=== PATIENT | female | born 1965 | race Caucasian/White ===

== ENCOUNTER 2024-04-06 14:06 | Outpatient (AMB) | payer OTHER, SELFPAY ==
--- NOTE | 2024-04-06 13:51 | MHC.PC.OV ---
Vital Signs 04/06/24 14:07 Height 5 ft 6 in Weight 169 lb BMI 27.3 BP 106/60 Blood Pressure Location Lt brachial Position Sitting Respiration 12 Pulse 78 Pulse Source Pulse Oximeter Pulse Oximetry (%) 98 Oxygen Delivery Method Room Air Intake Visit Reasons: NPV, rash Intake Note: New patient visit. Rash on left buttock. 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: No Allergies codeine Allergy (Verified 04/06/24 14:04) Nausea latex Allergy (Verified 04/06/24 14:04) skin rash Medication List - Last Reconciled 04/06/24 by Mee Stevenson PA-C No Known Home Meds Tobacco use date assessed: 04/06/24 Dental Screening Dental Screen Date: 04/06/24 Did you have a dental visit in the last 12 months?: Yes Did you have a dental problem in the last 6 months where you did not have access to dental care?: No Was dental information given to patient?: Patient has dentist HPI NPV, rash HPI Details Patient is a 58-year-old female who has a significant past medical history of former smoker, hepatic steatosis, pulmonary lung nodules, and rheumatoid factor positive arthritis presenting today for a follow up. Derm: recently had a rash on her left buttock. States that about a week and a half ago she is pulling up her pants and noticed a sharp pain in the left buttocks and it felt like a discomfort similar to shingles. She states that her skin was sensitive to light touch and was also a little itchy. She states it felt like there may have been a foreign body but since then the skin has improved with applying emu cream. She states that there was no longer any pain or itchiness but there is a scab and a little redness lines next to the scab. There was never any drainage. She denies any pustule or vesicle formation. No known tick bite. GI: She has followed with [facility] and is due for colonoscopy. She does tell me today that years ago she had a swallow study because she would at times choke on liquids or even certain foods. She says that this swallow study overall looked okay but when they did the endoscopy she did need dilatation. She states that she did not feel like that resolved her symptoms. She can position her neck in a certain way to cause the food or liquid to go down. She states it almost feels like an internal spasm. She says if she bends her neck all the way back it can somewhat alleviate the swallowing or at times she can feel the increased mucus production and she will have to cough it out or spit it out. She does notice that she does feel full very quickly and has a hard time eating much. She easily gets bloated in her upper and lower abdomen. She states that this has been a problem since childhood and does appear to be worse recently. States that her diet has not been as good. She does have a history of fatty liver and is following with a wellness physician and tells me that her recent liver function tests were elevated and off. 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 Her last ultrasound was over a year ago. Musculoskeletal: She gets nodules over the joints in her fingers and toes and states that it is related to the sugar and gluten that she eats. When she does not eat this her symptoms are improved. She is trying to be better right now. She does report getting numbness and tingling and a burning pain in her 2nd, 3rd and 4th toes on both feet. This has been going on for about a year. Unsure if it is worsening but it is made worse by certain positions of her feet. She states when she did go to the wellness doctor to they did mention that her A1c was a little elevated. She does not know the exact numbers. She has never been a diabetic before. She does take supplements and believes her vitamin-B levels are normal. She does not feel like the numbness comes from her back going down but it does feel like it starts in the feet and goes up. At times she does get weakness in her legs but states that it is mostly in the thighs in his noticed by going up the stairs. She does have a history of spinal stenosis in her cervical neck but the lumbar spine has not been imaged. She states that if she walks up a flight of stairs it feels like she ran a marathon. Her legs feel exhausted. She can walk on flat surfaces for hours and have no problems. Endo: States last A1c was elevated but unsure of the number. No polyuria or polydipsia. Mammo: Following with the breast and wellness Center at [facility] as she recently has had abnormal imaging of the breast. The recommendation was possibly to start tamoxifen but they are going to see how the repeat imaging looks on 04/14. 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 She has never had a bone density. She is postmenopausal. Up-to-date with low-dose CT scan screening. 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 Current occupational exposures/hazards: Yes (mold, lead, mercury in building) Cognitive needs: No Hearing needs: No Vision needs: Yes (glasses) Physical exam (Primary Care) Vital Signs: Last Vital Signs Pulse 78 04/06/24 14:07 Resp 12 04/06/24 14:07 BP 106/60 04/06/24 14:07 Pulse Ox 98 04/06/24 14:07 Oxygen Delivery Method Room Air 04/06/24 14:07 BMI result Body Mass Index 27.3 Tobacco/Smoking Status: Tobacco use Status Tobacco use date assessed 04/06/24 04/06/24 13:57 Patient Tobacco Use Status Former Tobacco user (quit 04/06/24 14:10 2008) e-Cigarette/Vaping Use Never Used 04/06/24 13:57 Const Orientation/consciousness: patient oriented x3 HENMT Ears: hearing grossly normal bilaterally Neck Thyroid: Thyroid normal Lymphatic: no lymphadenopathy noted Resp Auscultation: clear to auscultation bilaterally Cardio Rate: regular rate Rhythm: regular rhythm Heart sounds: S1 normal heart sound present and S2 normal heart sound present GI Inspection: Yes normal to inspection Palpation (GI): Soft to palpation and Other GI palpation findings present (nontender, no cva tenderness) Auscultation: normoactive bowel sounds Rectal Exam - Female: deferred Skin Other: There is a small, 5 mm by 5 mm scab noted on the left medial buttocks. It is nontender. There are 2 linear areas of blanching erythema noted that are approximately 1 cm in 2 cm in length to the lateral aspect of the scab. Neuro Other: Vibratory sensation intact of the bilateral lower extremities. DP pulses 2+ General: patient oriented x3, gait normal, moves all extremities, no focal motor deficits and normal sensation to monofilament Gait exam (Neuro): Normal gait present Motor exam (neuro): 5/5 motor strength present throughout Coding Level of Care Code Est Pt Level 5 (32582) Complex EM visit Add On G2211 Diagnoses Elevated LFTs R79.89 Dysphagia R13.10 Early satiety R68.81 Abdominal bloating R14.0 Paresthesia of both feet R20.2 Bilateral leg weakness R29.898 Lumbar back pain with radiculopathy affecting lower extremity M54.16 Former smoker Z87.891 Abnormal mammogram R92.8 Assessment & Plan Assessment & Plan (1) Elevated LFTs: Code(s): R79.89 - Other specified abnormal findings of blood chemistry Category: Medical Plan: Labs ordered today. Ultrasound ordered. (2) Dysphagia: Code(s): R13.10 - Dysphagia, unspecified Category: Medical Plan: Barium swallow ordered. Patient is due to see GI. We will follow up pending test results and discuss the possible need for an EGD. (3) Early satiety: Code(s): R68.81 - Early satiety Category: Medical Plan: Ultrasound ordered. Labs ordered. (4) Abdominal bloating: Code(s): R14.0 - Abdominal distension (gaseous) Category: Medical Plan: Ultrasound abdominal and transvaginal and labs ordered. We will follow up pending test results. (5) Paresthesia of both feet: Code(s): R20.2 - Paresthesia of skin Category: Medical Plan: Labs ordered. Nerve conduction study ordered. (6) Bilateral leg weakness: Code(s): R29.898 - Other symptoms and signs involving the musculoskeletal system Category: Medical Plan: X-ray of the back. Nerve conduction study ordered. D (7) Lumbar back pain with radiculopathy affecting lower extremity: Code(s): M54.16 - Radiculopathy, lumbar region Category: Medical Plan: X-ray. (8) Former smoker: Code(s): Z87.891 - Personal history of nicotine dependence Category: Social Hx Plan: Up-to-date on low-dose CAT scan screening (9) Abnormal mammogram: Code(s): R92.8 - Other abnormal and inconclusive findings on diagnostic imaging of breast Category: Medical Plan: Following with breast center Plan Bone density ordered 65 minutes spent today in [id number] time reviewing list of concerns and ongoing medical problems. Also reviewed previous notes from [facility]. Orders: Orders Complete Blood Count Auto Diff Today R13.10 - Dysphagia, unspecified, R79.89 - Other specified abnormal findings of blood chemistry Lipid Panel Today R13.10 - Dysphagia, unspecified, R79.89 - Other specified abnormal findings of blood chemistry NM gastric emptying study Today R68.81 - Early satiety US pelvic and transvaginal Today R14.0 - Abdominal distension (gaseous) IRON PROFILE Today M54.16 - Radiculopathy, lumbar region, R20.2 - Paresthesia of skin, R29.898 - Other symptoms and signs involving the musculoskeletal system Vitamin B12 and Folate Today M54.16 - Radiculopathy, lumbar region, R20.2 - Paresthesia of skin, R29.898 - Other symptoms and signs involving the musculoskeletal system Erythrocyte Sedimentation Rate Today M54.16 - Radiculopathy, lumbar region, R20.2 - Paresthesia of skin, R29.898 - Other symptoms and signs involving the musculoskeletal system US abdomen comp w elastography Today R13.10 - Dysphagia, unspecified, R79.89 - Other specified abnormal findings of blood chemistry Comprehensive Sp[place]er. Panel Fast Today R13.10 - Dysphagia, unspecified, R79.89 - Other specified abnormal findings of blood chemistry Ferritin Today R13.10 - Dysphagia, unspecified, R79.89 - Other specified abnormal findings of blood chemistry TSH reflex Free T4 Today R13.10 - Dysphagia, unspecified, R79.89 - Other specified abnormal findings of blood chemistry FL barium swallow Today R13.10 - Dysphagia, unspecified, R79.89 - Other specified abnormal findings of blood chemistry XR DEXA axial skeleton Today N95.9 - Unspecified menopausal and perimenopausal disorder, Z13.820 - Encounter for screening for osteoporosis Lyme IgG/IgM w/reflex to WB Today M54.16 - Radiculopathy, lumbar region, R20.2 - Paresthesia of skin, R29.898 - Other symptoms and signs involving the musculoskeletal system Magnesium Today M54.16 - Radiculopathy, lumbar region, R20.2 - Paresthesia of skin, R29.898 - Other symptoms and signs involving the musculoskeletal system Hemoglobin A1c Today M54.16 - Radiculopathy, lumbar region, R20.2 - Paresthesia of skin, R29.898 - Other symptoms and signs involving the musculoskeletal system, R73.01 - Impaired fasting glucose XR lumbar spine 2-3V Today M54.50 - Low back pain, unspecified H pylori Ag Stool Today R14.0 - Abdominal distension (gaseous) NE electromyogram (EMG) Today R20.2 - Paresthesia of skin
[2024-04-06 14:07] VITALS: BP 106/60; PULSE 78; RESP 12; O2SAT 98; BMI 27.3
--- OUTSIDE RECORDS SUMMARY | 2024-04-06 15:23 | XMS_ITS | Clinical Summary ---
Author Organization [facility] Address [address] [address] Care Team Providers Care Financial Aid Counselor Name Role Phone Pcp, No Primary Care Provider Unavailabl e Allergies No known active allergies Medications Medication Sig Dispensed Refills Start Date End Date Status clobetasol (TEMOVATE) 0.05 % cream APPLY THIN COAT TO AFFECTED AREA TWICE A DAY 08/16/2019 Active hydrocortisone (HYTONE) 2.5 % ointment APPLY A THIN LAYER OVER AFFECTED AREA ONCE DAILY AT BEDTIME 08/16/2019 Active multivitamin (multivitamin) Tab tablet Take 1 tablet by mouth daily. Active Social History Tobacco Use Types Packs/Day Years Used Date Smoking Tobacco: Former Smokeless Tobacco: Never Sex and Gender Information Value Date Recorded Sex Assigned at Not on file Gender Identity Not on file Sexual Orientation Not on file Last Filed Vital Signs Vital Sign Reading Time Taken Comments Blood Pressure 137/62 11/28/2019 12:34 PM EDT Pulse 87 11/28/2019 12:34 PM EDT Temperature 36.8 ??C (98.2 ??F) 11/28/2019 12:34 PM E DT Respiratory Rate - - Oxygen Saturation 98% 11/28/2019 12:34 PM EDT Inhaled Oxygen Concentration - - Weight 65.8 kg (145 lb) 11/28/2019 12:34 PM EDT Height 167.6 cm (5' 6 ) 11/28/2019 12:34 PM EDT Body Mass Index 23.4 11/28/2019 12:34 PM EDT Plan of Treatment Health Maintenance Due Date Last Done Comments Hepatitis C Virus Screening 1965 HIV Screening 1978 DTaP/Tdap/Td Vaccines (1 - Tdap) 1984 Hepatitis B Vaccines (1 of 3 - 19+ 3-dose series) 1984 Pap Smear (Ages 21-65) 1986 Mammogram 2005 Colonoscopy 2010 Pneumococcal Vaccines 50+ (1 of 1 - PCV) 09/28/2015 Zoster (Shingles) Vaccine (1 of 2) 09/28/2015 Influenza Vaccine 10/01/2023 COVID-19 Vaccine (1 - 2023-2 5 season) 2023 Pneumococcal Vaccine: Pediat himanshu (0-5 Years) and At-Risk Patients (6 to 49 Years) Aged Out No longer eligible b ased on patient's age to complete this topic Care Teams Financial Aid Counselor Relationship Specialty Start Date End Date Pcp, No PCP - General General Medicine 11/21/19
== END 2024-04-06 16:50 | disposition home or self-care (01) ==
PROVIDERS: PCP Internal Medicine; Visit Provider Physician Assistant
DX: R13.10 Dysphagia, unspecified (principal); R79.89 Other specified abnormal findings of blood chemistry; R68.81 Early satiety; R14.0 Abdominal distension (gaseous); R20.2 Paresthesia of skin; R29.898 Other symptoms and signs involving the musculoskeletal system; M54.16 Radiculopathy, lumbar region; Z87.891 Personal history of nicotine dependence; R92.8 Other abnormal and inconclusive findings on diagnostic imaging of breast

== ENCOUNTER 2024-06-21 08:13 | Outpatient (REF) | payer OTHER, SELFPAY ==
--- NOTE | ~2024-06-21 | FL_ITS ---
EXAMINATION: XR BARIUM SWALLOW CLINICAL INFORMATION: Dysphagia. History of esophageal dilatation 7 2 COMPARISON: None available. TECHNIQUE: Barium swallow was performed in upright and lying prone position FINDINGS: Following oral administration of thick barium in upright view there is moderate stenosis in the mid to distal esophagus. There are tertiary peristalsis seen in the mid and distal esophagus. Proximal esophagus is of normal caliber. On placing patient in prone lying and oral administration of thin barium there is moderate proximal esophageal dilation. Again visualizes mild to moderate narrowing in the mid esophagus with tertiary/cork screw peristalsis in the mid and distal esophagus. The GE junction is widely patent. FLUOROSCOPY TIME: 1 minute 58 seconds DOSE AREA PRODUCT: [id number] uGy-m2 (microgray-meter squared) FL/FL barium swallow IMPRESSION: There is moderate stenosis seen on the several initial images in the mid to distal esophagus. There are presbyesophagus changes in mid and the distal esophagus Electronically signed by: Ba Moura MD 06/22/2024 11:07 AM EDT
--- NOTE | ~2024-06-21 | XR_ITS ---
EXAMINATION: XR LUMBOSACRAL SPINE CLINICAL INFORMATION: M54.50 - Low back pain, unspecified COMPARISON: None available. TECHNIQUE: Three views of the lumbosacral spine. FINDINGS: Multilevel endplate sclerosis involving the lower thoracic and lumbar spine vertebral bodies. No acute cortical disruption or malalignment. There is a normal wedge-shaped compression deformity representing 20% volume loss at T9. No lytic or blastic lesions. 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 Last rib-bearing vertebra labeled T12. Calcified plaques, abdominal aorta. XR/XR lumbar spine 2-3V IMPRESSION: Multilevel thoracolumbar spondylosis. Atherosclerosis disease, abdominal aorta. Electronically signed by: Dionicio Stephenson MD 06/22/2024 07:39 AM EDT
--- OUTSIDE RECORDS SUMMARY | 2024-06-21 08:29 | XMS_ITS | Clinical Summary ---
Author Organization [facility] Address [address] [place] [address] Care Team Providers Care Tag Maker Name Role Phone Pcp, No Primary Care Provider Unavailabl e Allergies No known active allergies Medications clobetasol (TEMOVATE) 0.05 % cream APPLY THIN COAT TO AFFECTED AREA TWICE A DAY 08/16/2019 Active hydrocortisone (HYTONE) 2.5 % ointment APPLY A THIN LAYER OVER AFFECTED AREA ONCE DAILY AT BEDTIME 08/16/2019 Active multivitamin (multivitamin) Tab tablet Take 1 tablet by mouth daily. Active Social History Tobacco Use Types Packs/Day Years Used Date Smoking Tobacco: Former Smokeless Tobacco: Never Comments Unknown Sex and Gender Information Value Date Recorded Sex Assigned at Not on file Legal Sex Female 5:24 PM EDT Gender Identity Not on file Sexual Orientation [...] on patient's age to complete this topic Insurance [facility] Care Teams Tag Maker Relationship Specialty Start Date End Date Pcp, No PCP - General General Medicine 11/21/19
--- OUTSIDE RECORDS SUMMARY | 2024-06-21 08:29 | XMS_ITS | Data Portability ---
Author Organization [facility], Endoscopy, [facility] Address [address] [place] [address] Assessment No assessment recorded. Plan of Treatment Reminders Order Date Submit Date Provider Last Modified By Organization Details Last Modified Time Details Appointments None record ed. Lab None record ed. Referral None record ed. Procedures None record ed. Surgeries None record ed. Imaging None record ed. Medication Orders None record ed. Patient TargetsNo targets recorded. Patient InstructionsNo instructions recorded. Reason for Referral None Reported. Procedures Surgical History Date Name Laterality Status Provider Name and Address Organization Details Recorded Time Clement - Colonoscopy completed Blayne Vaughan MD [address] [place] [address], [id number] [place], [place] 05/30/2024 09:57:51 Imaging Results None recorded. Procedure Notes None recorded. Medical Equipment None Reported. Allergies Allergen ID Allergen Name Allergen Category Reaction Reaction Severity Criticality Documentation Date Start Date Code Code System Note Provider Name and Address Organization Details Recorded Time 001665 latex environme nt,medica tion rash Not available Not available 05/26/2024 28266 91 RxNorm MANOJ Landry, [facility] 14:51:38 545393 codeine medicatio n nausea Not available Not available 05/26/2024 2670 RxNorm MANOJ Landry, [facility] 14:51:56 Medications Name Sig Start Date Stop Date Status Note LastModified by Organization Details LastModified Time sulfamethoxazole 800 mg-trimethoprim 160 mg tablet TAKE 1 TABLET BY MOUTH 2 TIMES A DAY,X10 DAYS, DRINK PLENTY OF FLUIDS TAKE WITH FOOD active Not Available Not Available No t Available Vitals None Recorded Social History None recorded. Functional Status None recorded. Mental Status None recorded. Family History Nothing Reported. Medical History No medical history recorded. Gynecological HistoryNo gynecological history recorded. 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
== END 2024-06-21 08:14 | disposition home or self-care (01) ==
LOC: HO.XRAY 08:13
PROVIDERS: PCP Physician Assistant; Visit Provider Physician Assistant
DX: R13.10 Dysphagia, unspecified (principal); R79.89 Other specified abnormal findings of blood chemistry; M54.50 Low back pain, unspecified
CPT/HCPCS: 72100; 74220

== ENCOUNTER → 2024-06-21 08:14 | Outpatient (BNV) | payer OTHER, SELFPAY | PROVIDERS: PCP Physician Assistant; Visit Provider Radiology Diagnostic Radiology | DX: K22.2 Esophageal obstruction (principal); M54.50 Low back pain, unspecified | CPT/HCPCS: 72100; 74220 ==

== ENCOUNTER → 2024-06-29 07:50 | Outpatient (REF) | payer OTHER, SELFPAY ==
--- NOTE | ~2024-06-29 | NM_ITS ---
EXAMINATION: NE RADIONUCLIDE SOLID FOOD GASTRIC EMPTYING 4-HOUR STUDY CLINICAL INFORMATION: R68.81 - Early satiety COMPARISON: None TECHNIQUE: A standard meal consisting of 4 oz of Egg Beaters brand tagged with 0.89 mCi Tc-99m Sulfur Colloid, 8 oz water and 2 slices of toast with jelly was administered orally to the patient. Images were obtained using a dual head gamma camera in the anterior and posterior projections over of the stomach immediately post ingestion and at hourly intervals up to 4 hours post ingestion. The anterior and posterior counts at each time interval were averaged using the geometric mean and expressed as percentage of the immediate post ingestion counts. FINDINGS: There is visualization of activity in the stomach immediately post ingestion. As the study progresses, there is clearance of activity from the stomach and visualization of progressively increasing small bowel activity. By the end of the study, there is almost no retention noted in the stomach. Retention in the stomach at each time interval was: 1 hour 61% (normal 37%-90%) 2 hours 23% (normal 30%-60%) 3 hours 9% NE/NE gastric emptying study IMPRESSION: Rapid gastric emptying. For solid meal, rapid gastric emptying is less than 30% at 60 minutes. Delayed gastric emptying criteria is more than 60% remaining at 120 minutes or more than 10% at 240 minutes. The 4-hour value is the best discriminator of a normal or abnormal result). Gastric emptying study grading per JNMT Consensus Recommendations in 2008 (https://tech.snmjournals.org/content/36/1/44) Grade 1 (mild retention): 11-20% at 4h Grade 2 (moderate retention): 21-35% at 4h Grade 3 (severe retention): 36-50% at 4h Grade 4 (very severe retention): >50% retention at 4h Electronically signed by: Dejuan Padilla MD 06/29/2024 02:18 PM EDT
--- OUTSIDE RECORDS SUMMARY | 2024-06-29 07:54 | XMS_ITS | Data Portability ---
Author Organization [facility], Endoscopy, [facility] Address [address] [place] [address] Assessment No assessment recorded. Plan of Treatment [...] Clement - Colonoscopy completed Blayne Vaughan MD [address] [place] [address], [id number] [place] 05/30/2024 09:57:51 Imaging Results None recorded. Procedure Notes None recorded. Medical Equipment None Reported. Allergies Allergen ID Allergen Name Allergen Category Reaction Reaction Severity Criticality Documentation Date Start Date Code Code System Note Provider Name and Address Organization Details Recorded Time 156022 latex environme nt,medica tion rash Not available Not available 05/26/2024 29441 91 RxNorm MANOJ Landry, [facility] 14:51:38 [id number] codeine medicatio n nausea Not available Not available 05/26/2024 2670 RxNorm MANOJ Landry, [facility] 14:51:56 Medications Name Sig Start Date [...] SNOMED-CT Code Diagnosis ICD10 Code Diagnosis Note [id number] Angella Lombardo, driller portable , [address] [address] 05/30/2024 08:31:46 05/30/2024 10:50:00 Health Concerns Section Related Observation LastModified by Organization Detai ls LastModified Time None Recorded Concern Status LastModified by Organization Details LastModified Time None Recorded Advance Directives Directive None Recorded Payers Encounter Date Sequence Insurance Name Policy Number Policy Saba Covered Member ID Saba Member ID Guarantor Name 05/30/2024 1 [facility] (O) [id number] Ailyn Ta [id number] Ailyn Ta OBGyn Episode No OBEpisode recorded.
--- OUTSIDE RECORDS SUMMARY | 2024-06-29 07:54 | XMS_ITS | Clinical Summary ---
Author Organization [facility] Address [address] [place] [address] Care Team Providers Care Web Production Artist Name Role Phone Pcp, No Primary Care [...] (1 of 3 - 19+ 3-dose series) 08/31 Pap Smear (Ages 21-65) 1986 Mammogram 2005 Colonoscopy 2010 Pneumococcal Vaccines 50+ (1 of 1 - PCV) 09/28/2015 Zoster (Shingles) Vaccine (1 of 2) 09/28/2015 Influenza Vaccine 10/01/2023 COVID-19 Vaccine (2023- season) 2023 Insurance [facility] Care Teams Web Production Artist Relationship Specialty Start Date End Date Pcp, No PCP - General General Medicine 11/21/19
== END ==
LOC: HO.NUCMED 07:50
PROVIDERS: PCP Physician Assistant; Visit Provider Physician Assistant
DX: R68.81 Early satiety (principal)
CPT/HCPCS: 78264; A9541

== ENCOUNTER → 2024-06-29 07:51 | Outpatient (BNV) | payer OTHER, SELFPAY | PROVIDERS: PCP Physician Assistant; Visit Provider Radiology Diagnostic Radiology | DX: R68.81 Early satiety (principal) | CPT/HCPCS: 78264 ==

== ENCOUNTER 2024-07-18 18:14 | Outpatient (REF) | payer OTHER, SELFPAY ==
--- NOTE | ~2024-07-18 | MR_ITS ---
EXAMINATION: MR THORACIC SPINE WITHOUT CONTRAST CLINICAL INFORMATION: Low back pain. Weakness, numbness and pain both lower extremities. COMPARISON: None available. TECHNIQUE: MRI of the thoracic spine was obtained using routine sequences without contrast. FINDINGS: Limited by patient's motion artifact. Mild bone marrow STIR signal within the endplates of C7 and T1. Modic type I endplate changes at C7-T1. Multilevel marginal osteophyte formation and disc desiccation from C5-C6 to C7-T1 and to a lesser extent from T6 to T9. There is 20% volume loss of the vertebral body at T9, T10 and to a lesser extent T8 without associated STIR signal. No gross malalignment. The thoracic spinal cord caliber and signal are normal. The conus medullaris ends at pedicle of L1 with normal signal. No cord compression. T1-2: No herniated disc . No cord compression. T2-3: No herniated disc. No cord compression. T3-4: No herniated disc. No cord compression. T4-5: No herniated disc. No cord compression. T5-6: No herniated disc. No cord compression. T5-6: No herniated disc. No cord compression. T7-8: No herniated disc. No cord compression. T8-9: Small central herniated disc. No cord compression. T9-10: No herniated disc. No cord compression. T10-11: No herniated disc. No cord compression. T11-12: No herniated disc. No cord compression. No prevertebral compartment hematoma, mass or fluid collection. There is a fluid-filled prominent intrathoracic esophagus. MR/MR thoracic spine wo con IMPRESSION: No acute fracture or listhesis. No cord compression, cord edema and or myelopathy. Multilevel lower cervical and mid thoracic spondylosis. Consider esophageal dysmotility. Electronically signed by: Dionicio Stephenson MD 07/19/2024 07:33 AM EDT
--- NOTE | ~2024-07-18 | MR_ITS ---
EXAMINATION: MR LUMBAR SPINE WITHOUT CONTRAST CLINICAL INFORMATION: Low back pain. Lower extremity weakness and numbness and pain, bilaterally. X-ray on June 21, 2024 demonstrated wedge-shaped compression deformity, T9. COMPARISON: Correlated to x-ray dated June 21, 2024. TECHNIQUE: MRI of the lumbar spine was obtained using routine sequences without contrast. FINDINGS: Last rib-bearing vertebra labeled T12. No bone marrow STIR signal abnormality. Multilevel disc desiccation from T11-12 to L4-5 levels. Schmorl nodes in the superior endplate of L1 inferior endplate of T11 and superior endplate of L4. No gross volume loss of the vertebral bodies. There is normal alignment. Conus medullaris ends at pedicle of L1 with normal signal. T12-L1: No disc herniation. No neuroforamina stenosis. L1-2: No disc herniation. No neuroforamina stenosis. L2-3: No disc herniation. No neuroforamina stenosis. L3-4: Broad-based disc bulging. Facet joint and ligamentum flavum hypertrophy. Reduced AP diameter of the thecal sac and neuroforamina. No compression upon neural elements. L4-5: Broad-based disc bulging. Facet joint ligamentum flavum hypertrophy. Reduced AP diameter of the thecal sac and neuroforamina. No compression upon neural elements. L5-S1: Broad-based disc bulging. Facet joint hypertrophy. No compression upon neural elements. No prevertebral compartment hematoma, mass or fluid collection. Cystic lesions in the corticomedullary junction/parapelvic both kidneys. MR/MR lumbar spine wo con IMPRESSION: No acute fracture or listhesis. Multilevel lumbar spondylosis, mild from L3-4 to L5-S1 without compression upon neural elements. Electronically signed by: Dionicio Stephenson MD 07/19/2024 07:25 AM EDT
--- OUTSIDE RECORDS SUMMARY | 2024-07-18 18:17 | XMS_ITS | Clinical Summary ---
Author Organization [facility] Address [address] [place] [address] Care Team Providers Care Email Manager Name Role Phone Pcp, No Primary Care [...] Zoster (Shingles) Vaccine (1 of 2) 09/28/2015 COVID-19 Vaccine (1 - 2023- season) 2023 Influenza Vaccine 09/30/2024 Insurance [facility] Care Teams Email Manager Relationship Specialty Start Date End Date Pcp, No PCP - General General Medicine 11/21/19
== END 2024-07-18 18:15 | disposition home or self-care (01) ==
LOC: HO.MRI 18:14
PROVIDERS: PCP Physician Assistant; Visit Provider Physician Assistant
DX: M54.16 Radiculopathy, lumbar region (principal); S22.070D Wedge compression fracture of T9-T10 vertebra, subsequent encounter for fracture with routine healing
CPT/HCPCS: 72146; 72148

== ENCOUNTER → 2024-07-18 18:14 | Outpatient (BNV) | payer OTHER, SELFPAY | PROVIDERS: PCP Physician Assistant; Visit Provider Radiology Diagnostic Radiology | DX: M47.816 Spondylosis without myelopathy or radiculopathy, lumbar region (principal); M47.892 Other spondylosis, cervical region | CPT/HCPCS: 72146; 72148 ==

== ENCOUNTER 2024-08-05 08:02 | Outpatient (REF) | payer OTHER, SELFPAY ==
--- NOTE | ~2024-08-05 | MM_ITS ---
EXAMINATION: DXA BONE DENSITY AXIAL HISTORY: Z13.820 - Encounter for screening for osteoporosis/N95.9 POST MENOPAUSAL TECHNIQUE: [employer] Dual energy absorptiometry (DEXA) of the lumbar spine, total left hip, and femoral neck was performed. COMPARISON: There are no prior studies for comparison. FINDINGS: The bone mineral density of the lumbar spine is 1.050, corresponding to a T-score of -1.1, and a Z-score of -0.2. This is indicative of osteopenia. The bone mineral density of the left total hip is 0.949, corresponding to a T-score of -0.5, and a Z-score of 0.2. This is indicative of normal bone mineral density. The bone mineral density of the left femoral neck is 0.867, corresponding to a T-score of -1.2, and a Z-score of -0.2. This is indicative of osteopenia. FRACTURE RISK: The FRAX index suggests a risk of major osteoporotic fracture of 9.3%, and of hip fracture 0.7%. MM/XR DEXA axial skeleton IMPRESSION: Based on bone mineral density, and according to World Health Organization (WHO) criteria, the diagnosis is consistent with osteopenia. All bone density values are in grams per centimeter squared (g/cm2). Statistically, 68% of repeat scans fall within 1 SD (+/- 0.010 g/cm2 for AP spine L1-L4) and 1 SD (+/- 0.012 g/cm2 for femur total) FRAX is a trademark of the [employer]'s [facility] Metabolic Bone Disease, a World Health Organization (WHO) Collaborating Center. Electronically signed by: Dejuan Padilla MD 08/05/2024 09:19 AM EDT
--- OUTSIDE RECORDS SUMMARY | 2024-08-05 08:05 | XMS_ITS | Data Portability ---
Author Organization [facility], Endoscopy, [facility] Address [address] [place] [address] Assessment No assessment recorded. Plan of Treatment [...] Clement - Colonoscopy completed Blayne Vaughan MD [address] [place] [address], [id number] [place] 09:57:51 Imaging Results None recorded. Procedure Notes None recorded. Medical Equipment None Reported. Allergies Allergen ID Allergen Name Allergen Category Reaction Reaction Severity Criticality Documentation Date Start Date Code Code System Note Provider Name and Address Organization Details Recorded Time 544606 latex environme nt,medica tion rash Not available Not available 05/26/2024 31332 91 RxNorm MANOJ Landry, [facility] 14:51:38 377886 codeine medicatio n nausea Not available Not available 05/26/2024 2670 RxNorm MANOJ Landry, [facility] 14:51:56 Medications Name Sig Start Date Stop [...] SNOMED-CT Code Diagnosis ICD10 Code Diagnosis Note [id number] Blayne Vaughan MD Endoscopy , [address] [address] 05/30/2024 08:31:46 05/30/2024 10:50:00 Health Concerns Section Related Observation LastModified by Organization Detai ls LastModified Time None Recorded Concern Status LastModified by Organization Details LastModified Time None Recorded Advance Directives Directive None Recorded Payers Encounter Date Sequence Insurance Name Policy Number Policy Saba Covered Member ID Saba Member ID Guarantor Name 05/30/2024 1 [facility] ([facility]) [id number] Ailyn Ta [id number] Ailyn Ta OBGyn Episode No OBEpisode recorded.
== END 2024-08-05 08:03 | disposition home or self-care (01) ==
LOC: HO.MAMMO 08:02
PROVIDERS: PCP Physician Assistant; Visit Provider Physician Assistant
DX: Z13.820 Encounter for screening for osteoporosis (principal); Z78.0 Asymptomatic menopausal state
CPT/HCPCS: 77080

== ENCOUNTER → 2024-08-05 08:15 | Outpatient (BNV) | payer OTHER, SELFPAY | PROVIDERS: PCP Physician Assistant; Visit Provider Radiology Diagnostic Radiology | DX: E28.39 Other primary ovarian failure (principal) | CPT/HCPCS: 77080 ==

== ENCOUNTER 2024-08-23 09:29 | Outpatient (REF) | payer OTHER, SELFPAY ==
--- NOTE | ~2024-08-23 | US_ITS ---
EXAMINATION: US COMPLETE ABDOMEN WITH LIVER ELASTOGRAPHY CLINICAL INFORMATION: Abnormal liver function tests COMPARISON: None available. TECHNIQUE: Real-time imaging of the abdominal viscera. Noninvasive ultrasound liver fibrosis assessment is performed using [employer] Elast[employer] point quantification shear wave elastography (pSWE) with a C5-2 MHz transducer. Multiple elastography samples are obtained. FINDINGS: PANCREAS: The visualized pancreatic head and body are normal in appearance. The remainder of the pancreas is obscured from visualization by the overlying bowel gas. ABDOMINAL AORTA: Limited visualization. No aortic aneurysm is seen. INFERIOR VENA CAVA: Visualized portions are normal. LIVER: Liver is hyperechogenic. Portal flow is patent with continuous venous waveform. Shear wave liver elastography median stiffness is 1.6 m/s (reference: normal median stiffness is 1.3 m/s or less). IQR/median stiffness to assess sampling precision is 0.1 (reference: good quality data set is IQR/median stiffness of 0.15 or less). GALLBLADDER: The gallbladder is physiologically distended without evidence of stones, sludge, polyps, wall thickening or pericholecystic fluid. COMMON BILE DUCT: Normal in caliber measuring 0.6 cm in diameter. RIGHT KIDNEY: No hydronephrosis. No renal calculi or focal parenchymal lesions. There is mild cortical thinning. The kidney measures 9.2 cm in maximum dimension. LEFT KIDNEY: No hydronephrosis. No renal calculi or focal parenchymal lesions. There is mild cortical thinning. The kidney measures 10.5 cm in maximum dimension. SPLEEN: Unremarkable. The spleen measures 10 cm in maximum dimension. FREE FLUID: None seen. US/US abdomen comp w elastography IMPRESSION: 1. Liver Stiffness is less than 1.7 m/s: In the absence of other known clinical signs, rules out compensated advanced chronic liver disease. The liver is echogenic suggesting fatty infiltration. REFERENCE: Society of Radiologists in Ultrasound Liver Stiffness Thresholds (2020): LIVER STIFFNESS THRESHOLDS: *Liver Stiffness equal or less than 1.3 m/s: High probability of being normal. *Liver Stiffness less than 1.7 m/s: In the absence of other known clinical signs, rules out compensated advanced chronic liver disease. *Liver Stiffness 1.7-2.1 m/s: Suggestive of compensated advanced chronic liver disease but need further test for confirmation. *Liver Stiffness over 2.1 m/s: Rules in compensated advanced chronic liver disease. *Liver Stiffness over 2.4 m/s: Suggestive of clinically significant portal hypertension. QUALITY OF DATA SET: *IQR/Median value equal or less than 0.15 implies a quality data set. *IQR/Median value over 0.15 implies a poor quality data set. SIGNIFICANT CHANGE FROM PRIOR EXAM: Significant change if liver stiffness measurement is 10% or greater from prior exam. OTHER CONSIDERATIONS: The stage of liver fibrosis may be overestimated in the setting of acute hepatitis, liver inflammation, elevated liver function tests, hepatic vascular congestion, obstructive cholestasis, non-fasting state, and infiltrative diseases such as amyloidosis and lymphoma. In some patients with NAFLD, the liver stiffness thresholds for compensated advanced chronic liver disease may be lower. In causes other than viral hepatitis and NAFLD, liver stiffness thresholds are not well established. Electronically signed by: Roney Polk MD 08/23/2024 10:39 AM EDT
[2024-08-23 09:58] LABS: MANUAL DIFF FLAG NO
--- OUTSIDE RECORDS SUMMARY | 2024-08-23 10:12 | XMS_ITS | Data Portability ---
Author Organization [facility], Endoscopy, [facility] Address [address] [place] [address] Assessment No assessment recorded. Plan of Treatment [...] Clement - Colonoscopy completed Blayne Vaughan MD [address] [place] [address], [id number] 05/30/2024 09:57:51 Imaging Results None recorded. Procedure Notes None recorded. Medical Equipment None Reported. Allergies Allergen ID Allergen Name Allergen Category Reaction Reaction Severity Criticality Documentation Date Start Date Code Code System Note Provider Name and Address Organization Details Recorded Time 870015 latex environme nt,medica tion rash Not available Not available 05/26/2024 34303 91 RxNorm MANOJ Landry, [facility] 14:51:38 448555 codeine medicatio n nausea Not available Not available 05/26/2024 2670 RxNorm MANOJ Landry, [facility] 14:51:56 Medications Name Sig Start Date Stop [...] SNOMED-CT Code Diagnosis ICD10 Code Diagnosis Note [id number] Blayne Vaughan MD Endoscopy , [address] [address] 05/30/2024 08:31:46 05/30/2024 10:50:00 Health Concerns Section Related Observation LastModified by Organization Detai ls LastModified Time None Recorded Concern Status LastModified by Organization Details LastModified Time None Recorded Advance Directives Directive None Recorded Payers Insurance Date Sequence Insurance Name Policy Number Policy Saba Covered Member ID Saba Member ID Guarantor Name 05/30/2024 1 [facility] [id number] Ailyn Ta [id number] Ailyn Ta OBGyn Episode No OBEpisode recorded.
[2024-08-23 10:38] LABS: Basophils Percent Auto 0.8 % (0-2); Eosinophils Absolute Auto 0.1 X10*3/uL (0.0-0.4); Eosinophils Percent Auto 2.4 % (0-4); Hematocrit 41.7 % (37.0-47.0); Hemoglobin 13.9 g/dl (12.0-16.0); Imm Gran Abs Auto 0.02 X10*3/uL (0.00-0.03); Imm Gran Pct Auto 0.4 % (0.0-0.4); Lymphocytes Absolute Auto 1.8 X10*3/uL (1.2-4.9); Lymphocytes Percent Auto 35.3 % (20-40); Mean Corpuscular HGB Conc 33.3 g/dl (31.0-35.0); Mean Corpuscular Hemoglobin 29.8 pg (27.0-33.0); Mean Corpuscular Volume 89.5 fL (80.0-98.0); Mean Platelet Volume 9.7 fL (9.4-12.3); Monocytes Absolute Auto 0.4 X10*3/uL (0.1-1.2); Monocytes Percent Auto 8.7 % (2-11); Neutrophils Absolute Auto 2.7 x10*3/uL (2.0-8.3); Neutrophils Percent Auto 52.4 % (45-73); Platelet Count 274 X10*3/uL (160-400); Red Blood Count 4.66 X10*6/uL (4.20-5.50); White Blood Count 5.1 X10*3/uL (4.8-10.8)
[2024-08-23 10:47] LABS: Estimated Average Glucose 114 mg/dL; Hemoglobin A1c % 5.6 % (<6.0)
[2024-08-23 11:12] LABS: Alanine Aminotransferase 46 U/L (0-31); Albumin Level 4.3 g/dL (3.5-5.0); Alkaline Phosphatase 103 U/L (39-117); Anion Gap 12 (12-20); Aspartate Amino Transferase 37 U/L (5-31); Bilirubin Total 0.5 mg/dL (0.0-1.0); Blood Urea Nitrogen 12 mg/dL (9-16); Calcium 9.6 mg/dL (8.4-10.2); Carbon Dioxide 26 mmol/L (22-29); Chloride 107 mmol/L (96-108); Cholesterol 306 mg/dL (<200); Estimated Glomerular Filt Rate > 60; Glucose Fasting 93 mg/dL (60-99); HDL Cholesterol 56 mg/dL (>40); Iron 105 mcg/dL (30-160); LDL Cholesterol Calculated 217 mg/dL (<100); Magnesium 2.1 mg/dL (1.6-2.6); Percent Iron Saturation 40 % (15-50); Potassium 3.9 mmol/L (3.3-5.1); Sodium 141 mmol/L (135-145); Total Iron Binding Capacity 264 mcg/dL (228-428); Total Protein 6.9 g/dL (6.5-8.0); Triglycerides 169 mg/dL (<150); Unsaturated Iron Binding 159 ug/dL
[2024-08-23 11:20] LABS: Erythrocyte Sedimentation Rate 14 MM/HR (0-20)
[2024-08-23 11:31] LABS: Ferritin 70 ng/mL (10-250); TSH reflex Free T4 3.31 uIU/mL (0.32-4.0)
[2024-08-23 11:36] LABS: Folate 9.1 ng/mL (> or = 4.0); Vitamin B12 667 pg/mL (200-900)
[2024-08-24 09:08] LABS: Lyme Abs Screen <0.90 index
== END 2024-08-23 09:30 | disposition home or self-care (01) ==
LOC: HO.US 09:29
PROVIDERS: PCP Physician Assistant; Visit Provider Physician Assistant
DX: R79.89 Other specified abnormal findings of blood chemistry (principal); R13.10 Dysphagia, unspecified; R20.2 Paresthesia of skin; R29.898 Other symptoms and signs involving the musculoskeletal system; M54.16 Radiculopathy, lumbar region; R73.01 Impaired fasting glucose
CPT/HCPCS: 36415; 76700; 76981; 80053; 80061; 82607; 82728; 82746; 83036; 83540; 83735; 84443; 85025; 85652; 86617; 86618

== ENCOUNTER → 2024-08-23 09:55 | Outpatient (BNV) | payer OTHER, SELFPAY | PROVIDERS: PCP Physician Assistant; Visit Provider Radiology Diagnostic Radiology | DX: R93.2 Abnormal findings on diagnostic imaging of liver and biliary tract (principal) | CPT/HCPCS: 76700 ==

== ENCOUNTER 2024-09-13 08:00 | Outpatient (REF) | payer OTHER, SELFPAY ==
--- NOTE | 2024-09-13 08:02 | EMG_ITS ---
Please see the attached neurophysiology report MTDD
--- OUTSIDE RECORDS SUMMARY | 2024-09-13 08:03 | XMS_ITS | Clinical Summary ---
Author Organization [facility] Address [address] [place] [address] Care Team Providers Care Fast Food Restaurant Manager Name Role Phone Pcp, No Primary [...] 87 11/28/2019 12:34 PM EDT Temperature 36.8 C (98.2 F) 11/28/2019 12:34 PM EDT Respiratory Rate - - Oxygen Saturation 98% [...] Vaccine (1 of 2) 09/28/2015 COVID-19 Vaccine ( - 2023- season) 2023 Influenza Vaccine 09/30/2024 Insurance [facility] [employer] Care Teams Fast Food Restaurant Manager Relationship Specialty Start Date End Date Pcp, No PCP - General General Medicine 11/21/19
--- OUTSIDE RECORDS SUMMARY | 2024-09-13 08:03 | XMS_ITS | Data Portability ---
Author Organization [facility], Endoscopy, [facility] Address [address] [place] [address] Assessment No assessment recorded. Plan of Treatment [...] Clement - Colonoscopy completed Blayne Vaughan MD [address] [place] [address], [id number] 05/30/2024 09:57:51 Imaging Results None recorded. Procedure Notes None recorded. Medical Equipment None Reported. Allergies Allergen ID Allergen Name Allergen Category Reaction Reaction Severity Criticality Documentation Date Start Date Code Code System Note Provider Name and Address Organization Details Recorded Time 113722 latex environme nt,medica tion rash Not available Not available 05/26/2024 66400 91 RxNorm MANOJ Landry, [facility] 14:51:38 759513 codeine medicatio n nausea Not available Not available 05/26/2024 2670 RxNorm MANOJ Landry, [facility] 14:51:56 Medications Name Sig Start Date [...] SNOMED-CT Code Diagnosis ICD10 Code Diagnosis Note [id number] Blayne Vaughan MD Endoscopy , [address] [address] 05/30/2024 08:31:46 05/30/2024 10:50:00 Health Concerns Section Related Observation LastModified by Organization Detai ls LastModified Time None Recorded Concern Status LastModified by Organization Details LastModified Time None Recorded Advance Directives Directive None Recorded Payers Insurance Date Sequence Insurance Name Policy Number Policy Saba Covered Member ID Saba Member ID Guarantor Name 08/23/2024 1 [facility] [id number] Ailyn Ta [id number] Ailyn Ta OBGyn Episode No OBEpisode recorded.
== END 2024-09-13 08:01 | disposition home or self-care (01) ==
LOC: HO.NEURO 08:00
PROVIDERS: PCP Physician Assistant; Visit Provider Physician Assistant
DX: R20.2 Paresthesia of skin (principal); R29.898 Other symptoms and signs involving the musculoskeletal system; G62.9 Polyneuropathy, unspecified
CPT/HCPCS: 95886; 95913

== ENCOUNTER → 2024-09-13 08:02 | Outpatient (BNV) | payer OTHER, SELFPAY | PROVIDERS: PCP Physician Assistant; Visit Provider Psychiatry & Neurology Neurology | DX: R20.2 Paresthesia of skin (principal) | CPT/HCPCS: 95886; 95913 ==

== ENCOUNTER 2024-10-05 15:22 | Outpatient (REF) | payer OTHER, SELFPAY ==
--- NOTE | ~2024-10-05 | US_ITS ---
CLINICAL HISTORY: R14.0 - Abdominal distension (gaseous) US pelvis transabdominal and transvaginal with Doppler Comparison: None provided Findings: Transabdominal scanning performed for overall anatomy. Transvaginal scanning performed for additional detail. Anteverted uterus is 6.7 cm length. Normal myometrium. Endometrium 2 mm thickness. Right ovary is not seen. Left ovary 1 x 1 x 1.3 cm. Echogenic ring shaped focus within the left ovary measuring 5 mm. This may represent a collapsed ovarian cyst. Normal color Doppler with arterial/venous spectral tracing of the right adnexa and left ovary. No free fluid. IMPRESSION: 1. No acute process. 2. Indeterminate echogenic focus within the left ovary. Follow-up ultrasound in 6 weeks is recommended for further assessment. This document has been electronically signed by: Paolo Cramer MD on 10/05/2024 16:39:26
--- OUTSIDE RECORDS SUMMARY | 2024-10-05 15:52 | XMS_ITS | Clinical Summary ---
Author Organization [facility] Address [address] [place] [address] Care Team Providers Care Automatic Folder Seamer Name Role Phone Pcp, No Primary Care [...] 2023- season) 2023 Influenza Vaccine 09/30/2024 Insurance [facility] Care Teams Automatic Folder Seamer Relationship Specialty Start Date End Date Pcp, No PCP - General General Medicine 11/21/19
--- OUTSIDE RECORDS SUMMARY | 2024-10-05 15:52 | XMS_ITS | Encounter Summary ---
Author Organization [facility] Address [address] [place] [address] Phone Care Team Providers Care Make Ready Mechanic Name Role Phone Ignaico Cloud MD Unavailable Sammie Lindsay MD Primary Care Provider [phone] Unknown, Unknown Primary Care Provider Annia vasquez Encounter Details Date Type Department Care Team (Late st Contact Info) Description 05/09/2019 Procedure Pass [facility] Endoscopy Admitting Dept Virtual Department [address] [place] [address] Social History Tobacco Use Types Packs/Day Years Used Date Smoking Tobacco: Former Smokeless Tobacco: Never Comments:quit June 2007 Alcohol Use Standard Drinks/Week Comments Not Currently 0 (1 standard drink = 0.6 oz pur e alcohol) Comments Unknown Sex and Gender Information Value Date Recorded Sex Assigned at Not on file Legal Sex Female 9:40 PM EDT Gender Identity Not on file Sexual Orientation Not on file documented as of this encounter Plan of Treatment Not on file documented as of this encounter Visit Diagnoses Not on filedocumented in this encounter Additional Health Concerns Assessment Noted Time PHQ-2 Depression Total Score: 0 12/22/19 18 10:14 AM EDT documented as of this encounter Care Teams Make Ready Mechanic Relationship Specialty Start Date End Date Sammie Lindsay MD [address] [place] [phone] [email or web address] PCP - General Family Medicine 12/21/17 06/01/23 Unknown, Unknown, MD PCP - General 06/02/23 Ignacio Cloud MD [address] [place] [address] Historical LMR Provider 12/18/16 2 documented as of this encounter Additional Source Comments The information contained in this document represents components of the legal health record. It is not the complete legal health record.[facility]
== END 2024-10-05 15:23 | disposition home or self-care (01) ==
LOC: HO.US 15:22
PROVIDERS: PCP Physician Assistant; Visit Provider Physician Assistant
DX: N28.1 Cyst of kidney, acquired (principal); R14.0 Abdominal distension (gaseous)
CPT/HCPCS: 76830; 76856

== ENCOUNTER → 2024-10-05 15:26 | Outpatient (BNV) | payer OTHER, SELFPAY | PROVIDERS: PCP Physician Assistant; Visit Provider Radiology Diagnostic Radiology | DX: N83.292 Other ovarian cyst, left side (principal) | CPT/HCPCS: 76830; 76856 ==

== ENCOUNTER 2024-10-06 09:24 | Outpatient (REF) | payer OTHER, SELFPAY ==
--- OUTSIDE RECORDS SUMMARY | 2024-10-06 09:48 | XMS_ITS | Clinical Summary ---
Author Organization [facility] Address [address] [place] [address] Care Team Providers Care Fund Accountant Name Role Phone Pcp, No Primary Care [...] 2023- season) 2023 Influenza Vaccine 09/30/2024 Insurance [facility] Care Teams Fund Accountant Relationship Specialty Start Date End Date Pcp, No PCP - General General Medicine 11/21/19
--- OUTSIDE RECORDS SUMMARY | 2024-10-06 09:48 | XMS_ITS | Encounter Summary ---
Author Organization [facility] Address [address] [place] [address] Phone Care Team Providers Care X Ray Service Technician Name Role Phone Ignacio Cloud MD Unavailable [phone] Sammie Lindsay MD Primary Care Provider [phone] Unknown, Unknown Primary Care Provider Annia vasquez Encounter Details Date Type Department Care Team (Late st Contact Info) Description 05/09/2019 Procedure Pass [facility] Endoscopy Admitting Dept Virtual Department [address] [place] [address] Social History Tobacco Use Types Packs/Day Years [...] documented as of this encounter Care Teams X Ray Service Technician Relationship Specialty Start Date End Date Sammie Lindsay MD [address] [place] [phone] [email or web address] PCP - General Family Medicine 12/21/17 06/01/23 Unknown, Unknown, MD PCP - General 06/02/23 Ignacio Cloud MD [address] [place] [address] Historical LMR Provider 12/18/16 2 documented as of this encounter Additional Source Comments The information contained in this document represents components of the legal health record. It is not the complete legal health record.[facility]
[2024-10-06 13:20] LABS: MANUAL DIFF FLAG NO
[2024-10-06 13:29] LABS: Hematocrit 41.7 % (37.0-47.0); Hemoglobin 14.1 g/dl (12.0-16.0); Imm Gran Abs Auto 0.02 X10*3/uL (0.00-0.03); Imm Gran Pct Auto 0.4 % (0.0-0.4); Lymphocytes Absolute Auto 1.7 X10*3/uL (1.2-4.9); Mean Corpuscular HGB Conc 33.8 g/dl (31.0-35.0); Mean Corpuscular Hemoglobin 29.8 pg (27.0-33.0); Mean Corpuscular Volume 88.2 fL (80.0-98.0); NRBC Abs Auto 0.000 X10*3/uL (0.0-0.012); NRBC Pct Auto 0.0 /100WBC (0.0-0.2); Platelet Count 268 X10*3/uL (160-400); Red Blood Count 4.73 X10*6/uL (4.20-5.50); White Blood Count 4.8 X10*3/uL (4.8-10.8)
[2024-10-06 13:59] LABS: Alanine Aminotransferase 45 U/L (0-31); Albumin Level 4.3 g/dL (3.5-5.0); Alkaline Phosphatase 102 U/L (39-117); Anion Gap 12 (12-20); Aspartate Amino Transferase 40 U/L (5-31); Blood Urea Nitrogen 12 mg/dL (9-16); Calcium 9.3 mg/dL (8.4-10.2); Carbon Dioxide 25 mmol/L (22-29); Chloride 109 mmol/L (96-108); Estimated Glomerular Filt Rate > 60; Potassium 4.2 mmol/L (3.3-5.1); Sodium 142 mmol/L (135-145); Total Protein 6.9 g/dL (6.5-8.0)
[2024-10-07 09:59] LABS: CA-125 10 U/mL (<35)
== END 2024-10-06 09:25 | disposition home or self-care (01) ==
LOC: HO.HMGCLDS 09:24
PROVIDERS: PCP Physician Assistant; Visit Provider Physician Assistant
DX: R93.5 Abnormal findings on diagnostic imaging of other abdominal regions, including retroperitoneum (principal); R14.0 Abdominal distension (gaseous)
CPT/HCPCS: 36415; 80053; 85025; 86304

== ENCOUNTER 2025-01-19 08:28 | Outpatient (AMB) | payer OTHER, SELFPAY ==
[2025-01-19 08:29] VITALS: BP 118/80; PULSE 74; O2SAT 96; BMI 27.1
--- NOTE | 2025-01-19 08:29 | MHC.OFFVIS ---
Vital Signs 01/19/25 08:29 Height 5 ft 6 in Weight 168 lb BMI 27.1 BP 118/80 Blood Pressure Location Rt brachial Position Sitting Pulse 74 Pulse Source Pulse Oximeter Pulse Oximetry (%) 96 Oxygen Delivery Method Room Air Intake Visit Reasons: INP - S/sx musculoskeletal system, Parathesia Intake Note: Bilateral leg weakness Pharmacy Salesperson Required: No Accompanied by: Self / Same As Patient Allergies codeine Allergy (Verified 01/19/25 08:29) Nausea latex Allergy (Verified 01/19/25 08:29) skin rash Medication List - Last Reconciled 01/19/25 by Amy Garcia MD No Known Home Meds HPI Comments Details: 59y/o female comes for evaluation of leg weakness and abnormal sensations. she was hospitalized over 10 years ago for leg weakness( intermittent legs giving out), unclear diagnosis - resolved on its own . she has persistent weakness- if she climbs up the stairs she feels like her legs are heavy .she reports shooting pains from thigh to toes when she moves her neck forward, chin to chest. She has tingling and numbness in her toes - unclear if it is at rest. she also has toes and foot cramps . It can be very painful and gently movement can help.she has had EMG and NCS . she has neck pain- saw a neurosurgeon 2 years ago and was told she was not a candidate at that time. No back pain. she has urinary incontinence. 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 Current occupational exposures/hazards: Yes (mold, lead, mercury in building) Cognitive needs: No Hearing needs: No Vision needs: Yes (glasses) Physical Exam Vital Signs: Last Vital Signs Pulse 74 01/19/25 08:29 BP 118/80 01/19/25 08:29 Pulse Ox 96 01/19/25 08:29 Oxygen Delivery Method Room Air 01/19/25 08:29 BMI result Body Mass Index 27.1 Const General: cooperative, healthy appearing and comfortable Nutritional Appearance: average body habitus Orientation/consciousness: patient oriented x3 Eyes Pupils: Equal, round and reactive pupils present Neuro General: patient oriented x3, tone normal and moves all extremities Cranial nerves: Yes Facial sensation intact/muscles of mastication intact, Yes Equal, round and reactive pupils present, Yes Bilaterally intact EOM present, Yes Normal facial strength present, Yes Midline tongue present, Yes Symmetric palate elevation present, Yes Ability to bilaterally rotate head present and Yes Ability to bilaterally elevate shoulders present Cognition (Neuro): normal cognition Gait exam (Neuro): Normal gait present Motor exam (neuro): 5/5 motor strength present throughout and Normal motor muscle tone present throughout Deep tendon reflexes (DTR's): Right triceps reflex intensity grade: 2+, Left triceps reflex intensity grade: 2+, Rt Biceps (C5, C6): 2+, Left biceps reflex intensity grade: 2+, Right brachioradialis reflex intensity grade: 2+, Left brachioradialis reflex intensity grade: 2+, Right patellar reflex intensity grade: 4+, Left patellar reflex intensity grade: 4+, Right ankle reflex intensity grade: 1+ and Left ankle reflex intensity grade: 2+ Coordination: [id number] test normal Results Reviewed Results Reviewed: MRI T spine- 06/2024 No acute fracture or listhesis. No cord compression, cord edema and or myelopathy. Multilevel lower cervical and mid thoracic spondylosis. Consider esophageal dysmotility. MRI C spine-No acute fracture or listhesis. Multilevel lumbar spondylosis, mild from L3-4 to L5-S1 without compression upon neural elements. EMG - mild sensory neuropathy Assessment & Plan Assessment & Plan (1) Leg weakness, bilateral: Code(s): R29.898 - Other symptoms and signs involving the musculoskeletal system Category: Medical (2) Cervical stenosis of spinal canal: Code(s): M48.02 - Spinal stenosis, cervical region Category: Medical (3) Paresthesia of both feet: Code(s): R20.2 - Paresthesia of skin Category: Medical Plan I will evaluate her with MRI C spine for worsening of her cervical stenosis causing weakness and paresthesias. MRI brain - to r/o structural causes of her weakness Orders: Orders MR head/brain wo/w con 01/19/25 R20.2 - Paresthesia of skin, R29.898 - Other symptoms and signs involving the musculoskeletal system, R29.90 - Unspecified symptoms and signs involving the nervous system MR cervical spine wo/w con 01/19/25 M48.02 - Spinal stenosis, cervical region, R20.2 - Paresthesia of skin, R29.90 - Unspecified symptoms and signs involving the nervous system Coding Level of Care Code New Pt Level 4 (03851) Diagnoses Leg weakness, bilateral R29.898 Cervical stenosis of spinal canal M48.02 Paresthesia of both feet R20.2
--- OUTSIDE RECORDS SUMMARY | 2025-01-19 09:16 | XMS_ITS | Clinical Summary ---
Author Organization [facility] Address [address] [place] [address] Care Team Providers Care Traveling Passenger Agent Name Role Phone Pcp, No Primary Care [...] Vaccine (1 of 2) 09/28/2015 Influenza Vaccine 09/30/2024 COVID-19 Vaccine ( - season) 2024 RSV Vaccine 50 years and old er and Patients (1 - 1-dose 75+ series) 2040 Insurance [facility] Care Teams Traveling Passenger Agent Relationship Specialty Start Date End Date Pcp, No PCP - General General Medicine 11/21/19
--- OUTSIDE RECORDS SUMMARY | 2025-01-19 09:16 | XMS_ITS | Encounter Summary ---
Author Organization [facility] Address [address] [place] [address] Phone Care Team Providers Care Mechanical Car Checker Name Role Phone Ignacio Cloud MD Primary Care Provider Ignacio Cloud MD Unavailable [phone] Pcp, Unknown Primary Care Provider Unavailabl e Unknown, Unknown Primary Care Provider Sammie Yuan MD Primary Care Provider Unknown, Unknown Primary Care Provider Annia vasquez Encounter Details Date Type Department Care Team (Late st Contact Info) Description 05/15/2017 Ancillary Orders Virtual Department [address] [place] [address] Thom Sanches MD [address] [place] [address] [phone] [email or web address]; Elevated LFTs Social History Tobacco Use Types Packs/Day Years Used Date Smoking Tobacco: Never Assessed Comments Unknown Sex and Gender Information Value Date Recorded Sex Assigned at Not on file Legal Sex Female 9:40 PM EDT Gender Identity Not on file Sexual Orientation Not on file documented as of this encounter Plan of Treatment Not on file documented as of this encounter Visit Diagnoses Diagnosis Fatty liver Other chronic nonalcoholic liver disease Elevated LFTs Other abnormal blood chemistry documented in this encounter Care Teams Mechanical Car Checker Relationship Specialty Start Date End Date Ignacio Cloud MD PCP - General 12/18/16 06/08/17 Pcp, Unknown PCP - General 06/09/17 06/21/17 Unknown, Unknown, PCP - General 06/22/17 12/20/17 Sammie Lindsay MD [email or web address] PCP - General Family Medicine 12/21/17 06/01/23 Unknown, Unknown, PCP - General 06/02/23 Ignacio Cloud MD [address] [place] [phone] Historical LMR Provider 12/18/16 1/ 2 documented as of this encounter Additional Source Comments The information contained in this document represents components of the legal health record. It is not the complete legal health record.[facility]
--- OUTSIDE RECORDS SUMMARY | 2025-01-19 09:16 | XMS_ITS | Encounter Summary ---
Author Organization [facility] Address [address] [place] [address] Phone Care Team Providers Care Pipe Buffer Name Role Phone Ignacio Cloud MD Unavailable [phone] Sammie Lindsay MD Primary Care Provider [phone] Unknown, Unknown Primary Care Provider Annia vasquez Encounter Details Date Type Department Care Team (Late st Contact Info) Description 05/09/2019 Procedure Pass [facility] Endoscopy Admitting Dept Virtual Department [address] [place] [address] Social History Tobacco Use Types Packs/Day Years [...] documented as of this encounter Care Teams Pipe Buffer Relationship Specialty Start Date End Date Sammie Lindsay MD [address] [place] [phone] [email or web address] PCP - General Family Medicine 12/21/17 06/01/23 Unknown, Unknown, MD PCP - General 06/02/23 Ignacio Cloud MD [address] [place] [address] Historical LMR Provider 12/18/16 2 documented as of this encounter Additional Source Comments The information contained in this document represents components of the legal health record. It is not the complete legal health record.[facility]
--- OUTSIDE RECORDS SUMMARY | 2025-01-19 09:17 | XMS_ITS | Encounter Summary ---
Author Organization [facility] Address [address] [place] [address] Phone Care Team Providers Care Editor Farm Journal Name Role Phone Ignacio Cloud MD Unavailable [phone] Unknown, Unknown Primary Care Provider Sammie Yuan MD Primary Care Provider Unknown, Unknown Primary Care Provider Annia vasquez Encounter Details Date Type Department Care Team (Late st Contact Info) Description 07/06/2017 Ancillary Orders Virtual Department [address] [place] [address] Thom Sanches MD [address] [place] [phone] [email or web address]; Elevated LFTs Social History Tobacco [...] on file documented as of this encounter Results * US ABDOMEN LIMITED RIGHT UPPER QUADRANT (07/06/2017 8:06 AM EDT) Anatomical Region Laterality Modality Abdomen Ultrasound 07/06/2017 8:12 AM EDT Impressions 07/06/2017 8:16 AM EDT No hepatic masses. Liver echogenicity within the upper limits of normal but no hepatic abnormalities are demonstrated. No other significant changes. POS - [id number] Narrative 07/06/2017 8:16 AM EDT HISTORY: Elevated liver function tests, abnormal previous exam. COMPARISON: Ultrasound 12/15/2016 FINDINGS: A right upper quadrant study is performed. Biliary: Gallbladder appears normal. No pericholecystic fluid. Proximal common duct normal measuring 5 m in diameter. This is stable. Liver: Liver echogenicity is in the upper limits of normal but not clearly increased. It is similar in appearance to 12/15/2016. No evidence of hepatic masses. Liver margins are smooth. Liver appears grossly normal in size. Pancreas: No abnormalities demonstrated. Right Kidney: The kidney is not entirely imaged but there is no pelvocaliectasis. Procedure Note Aubrey Smith MD - 07/06/2017 HISTORY: Elevated liver function tests, abnormal previous exam. COMPARISON: Ultrasound 12/15/2016 FINDINGS: A right upper quadrant study is performed. Biliary: Gallbladder appears normal. No pericholecystic fluid. Proximalcommon duct normal measuring 5 m in diameter. This is stable. Liver: Liver echogenicity is in the upper limits of normal but not clearlyincreased. It is similar in appearance to 12/15/2016. No evidence ofhepatic masses. Liver margins are smooth. Liver appears grossly normalin size. Pancreas: No abnormalities demonstrated. Right Kidney: The kidney is not entirely imaged but there is nopelvocaliectasis. IMPRESSION: No hepatic masses. Liver echogenicity within the upper limits of normalbut no hepatic abnormalities are demonstrated. No other significantchanges. POS - [id number] us Thom Sanches MD IM US ABDOMEN Final Result documented in this encounter Visit Diagnoses Diagnosis Fatty liver Other chronic nonalcoholic liver disease Elevated LFTs Other abnormal blood chemistry Fatty liver Other chronic nonalcoholic liver disease Elevated LFTs Other abnormal blood chemistry documented in this encounter Care Teams Editor Farm Journal Relationship Specialty Start Date End Date Unknown, Unknown, [address] [place] [address] PCP - General 06/22/17 12/20/17 Sammie Lindsay MD [address] [place] [address] [email or web address] PCP - General Family Medicine 12/21/17 06/01/23 Unknown, Unknown, MD PCP - General 06/02/23 Ignacio Cloud MD [address] [place] [address] Historical LMR Provider 12/18/16 2 documented as of this encounter Additional Source Comments The information contained in this document represents components of the legal health record. It is not the complete legal health record.[facility]
--- OUTSIDE RECORDS SUMMARY | 2025-01-19 09:17 | XMS_ITS | Encounter Summary ---
Author Organization [facility] Address [address] [place] [address] Phone Care Team Providers Care Property Preservation Specialist Name Role Phone Ignacio Cloud MD Unavailable [phone] Unknown, Unknown Primary Care Provider Sammie Yuan MD Primary Care Provider Unknown, Unknown Primary Care Provider Annia vasquez Encounter Details Date Type Department Care Team (Latest Contact Info) Description 06/22/2017 Transcribe Orders [facility] Phleb Main [address] [place] [address] Thom Sanches MD [address] [place] [phone] [email or web address] Pharyngoesophageal dysphagia (Primary Dx) Social History Tobacco Use Types Packs/Day Years Used Date Smoking Tobacco: Never Assessed Comments Unknown Sex and Gender Information Value Date Recorded Sex Assigned at Not on file Legal Sex Female 9:40 PM EDT Gender Identity Not on file Sexual Orientation Not on file documented as of this encounter Plan of Treatment Not on file documented as of this encounter Results * (ABNORMAL) LFTs (hepatic panel) (06/22/2017 9:40 AM EDT) ALKALINE PHOSPHATASE 105 39 - 117 U/L [facility] TOTAL BILIRUBIN 0.5 0.0 - 1.2 mg/dL [facility] DIRECT BILIRUBIN <0.2 0 - 0.3 mg/dL [facility] Bilirubin (Indirect) NOT CALCULATED 0 - 1.5 mg/dL [facility] AST 29 0 - 37 U/L [facility] ALT 44(H) 0 - 40 U/L [facility] TOTAL PROTEIN 6.9 6.5 - 8.0 g/dL [facility] ALBUMIN 4.1 3.9 - 4.8 g/dL [facility] GLOBULIN 2.8 1 - 4.8 g/dL [facility] A/G Ratio 1.46 1.00 - 4.80 RATIO [facility] Blood 06/22/2017 9:40 AM EDT 06/22/2017 9:41 AM EDT us Thom Sanches MD LAB BLOOD BKR ORDERABLES Rhonda l Result Performing Organization Address City/State/[place] Phone Number [address] [address] documented in this encounter Visit Diagnoses Diagnosis Pharyngoesophageal dysphagia- Primary Dysphagia, pharyngoesophageal phase documented in this encounter Care Teams Property Preservation Specialist Relationship Specialty Start Date End Date Unknown, Ingrid, [address] [place] [phone] PCP - General 06/22/17 12/20/17 Sammie Lindsay MD [address] [place] [phone] [email or web address] PCP - General Family Medicine 12/21/17 06/01/23 Unknown, Ingrid, PCP - General 06/02/23 Ignacio Cloud MD [address] [place] [address] Historical LMR Provider 12/18/16 2 documented as of this encounter Additional Source Comments The information contained in this document represents components of the legal health record. It is not the complete legal health record.[facility]
--- OUTSIDE RECORDS SUMMARY | 2025-01-19 09:17 | XMS_ITS | Encounter Summary ---
Author Organization [facility] Address [address] [place] [address] Phone Care Team Providers Care Grocery Shopper Name Role Phone Ignacio Cloud MD Unavailable [phone] Pcp, Unknown Primary Care Provider Unavailabl e Unknown, Unknown Primary Care Provider Sammie Yuan MD Primary Care Provider [phone] Unknown, Unknown Primary Care Provider Annia vasquez Encounter Details Date Type Department Care Team (Latest Contact Info) Description 06/09/2017 Ancillary Orders Virtual Department [address] [place] [phone] Thom Sanches MD [address] [place] [address] [phone] [email or web address] Gastroesophageal reflux disease, esophagitis presence not specified; NAFLD (nonalcoholic fatty liver disease); Other dysphagia Social History Tobacco Use Types Packs/Day Years Used Date Smoking Tobacco: Never Assessed Comments Unknown Sex and Gender Information Value Date Recorded Sex Assigned at Not on file Legal Sex Female 9:40 PM EDT Gender Identity Not on file Sexual Orientation Not on file documented as of this encounter Plan of Treatment Not on file documented as of this encounter Results * FL BARIUM SWALLOW ESOPHAGRAM SINGLE CONTRAST (06/22/2017 10:04 AM EDT) Anatomical Region Laterality Modality Chest Radiographic Beronica ging 06/22/2017 9:59 AM EDT Impressions 06/22/2017 10:04 AM EDT Mid and distal thoracic esophageal dysmotility with multiple tertiary contractions and reversed peristalsis. No gross mucosal pathology or fixed stricture identified. FLUOROSCOPY TIME: 1 min. 38 sec; 90 IMAGES/FRAMES POS - [id number] Narrative 06/22/2017 10:04 AM EDT COMPARISON: 07/13/2014 FINDINGS: A preliminary lateral view of the neck reveals chronic degenerative disc changes at the C5-6 level with minimally progressive degenerative disc change at the C6-7 level. Both standard double contrast and single contrast studies were performed and recorded on digital rapid sequence, spot, and overhead views. Following ingestion of the contrast mixture deglutition was assessed fluoroscopically. No aspiration or cricopharyngeal achalasia were noted. Multiple tertiary contractions are again evident in the mid and distal thoracic esophagus with a paucity of primary and secondary stripping waves and with episodes of reversed peristalsis present. No fixed stricture or gross mucosal ulceration identified. No spontaneous gastroesophageal reflux was noted. No hiatal hernia was elicited during a prone Valsalva maneuver. Procedure Note Flynn Duque MD - 06/22/2017 COMPARISON: 07/13/2014 FINDINGS: A preliminary lateral view of the neck reveals chronic degenerative discchanges at the C5-6 level with minimally progressive degenerative discchange at the C6-7 level. Both standard double contrast and singlecontrast studies were performed and recorded on digital rapid sequence,spot, and overhead views. Following ingestion of the contrast mixture deglutition was assessedfluoroscopically. No aspiration or cricopharyngeal achalasia were noted.Multiple tertiary contractions are again evident in the mid and distalthoracic esophagus with a paucity of primary and secondary stripping wavesand with episodes of reversed peristalsis present. No fixed stricture orgross mucosal ulceration identified. No spontaneous gastroesophagealreflux was noted. No hiatal hernia was elicited during a prone Valsalvamaneuver. IMPRESSION: Mid and distal thoracic esophageal dysmotility with multiple tertiarycontractions and reversed peristalsis. No gross mucosal pathology orfixed stricture identified. FLUOROSCOPY TIME: 1 min. 38 sec; 90 IMAGES/FRAMES POS - [id number] Thom Sanches MD [facility] Final Result documented in this encounter Visit Diagnoses Diagnosis Gastroesophageal reflux disease, esophagitis presence not specified NAFLD (nonalcoholic fatty liver disease) Other dysphagia Gastroesophageal reflux disease, esophagitis presence not specified NAFLD (nonalcoholic fatty liver disease) Other dysphagia documented in this encounter Care Teams Grocery Shopper Relationship Specialty Start Date End Date Pcp, Unknown PCP - General 06/09/17 06/21/17 Unknown, Unknown, PCP - General 06/22/17 12/20/17 Sammie Lindsay MD [email or web address] PCP - General Family Medicine 12/21/17 06/01/23 Unknown, Unknown, PCP - General 06/02/23 Ignacio Cloud MD [address] [place] [address] Historical LMR Provider 12/18/16 2 documented as of this encounter Additional Source Comments The information contained in this document represents components of the legal health record. It is not the complete legal health record.[facility]
--- OUTSIDE RECORDS SUMMARY | 2025-01-19 09:17 | XMS_ITS | Clinical Summary ---
Author Organization [facility] Address [address] [place] [address] Phone Care Team Providers Care Editor Continuity And Script Name Role Phone Unknown, Unknown Primary Care Provider Sofiavai lable Allergies No known active allergies Medications therapeutic multivitamin tablet Take 1 tablet by mouth daily. Active hydrocortisone 2.5 % cream Apply topically as needed. Active cholecalciferol (VITAMIN D3) 2,000 unit tablet Vitamin D TABS [id number] a week Refills: 0 Active Active clobetasol (TEMOVATE) 0.05 % cream APPLY THIN COAT TO AFFECTED AREA TWICE A DAY 0 Active zinc sulfate (ZINCATE) 220 (50) mg capsule Take 220 mg by mouth daily. Active ascorbic acid, vitamin C, (VITAMIN C) 250 MG tablet Take 250 mg by mouth daily. Active aspirin 81 MG EC tablet Take 1 tablet (81 mg total) by mouth daily. 90 tablet 3 1 Active Active Problems Problem Noted Date Diagnosed Date Elevated cholesterol 11/15/2019 Rheumatoid arthritis 12/21/2017 Overview (12/21/2017): Not on treatment Sx controlled by clean healthy diet Sjogren's syndrome 12/21/2017 Overview (12/21/2017): negative biopsy Neurological disorder 12/21/2017 Overview (12/21/2017): Neg MS on LP Controlled with diet Carpal tunnel syndrome 12/21/2017 Elevated liver enzymes 12/21/2017 Lichen sclerosus 12/21/2017 Difficulty swallowing 12/21/2017 Vitamin D deficiency 02/06/2009 Resolved Problems Problem Noted Date Diagnosed Date Resolved Date GARRISON (nonalcoholic steatohepatitis) 12/21/2017 12/21/2017 Immunizations No known immunizations Family History Medical History Relation Comments CABG Brother Congenital heart disease Brother Lichen sclerosus et atrophicus Daughter 1 Autoimmune disease Daughter 2 CV disease Father Hypertension Father Cancer Maternal Aunt 1 Diabetes mellitus Maternal Aunt 1 CV disease Maternal Grandfather CV disease Maternal Uncle 1 Cancer Maternal Uncle 1 Lung cancer Mother CV disease Sibling 1 Diabetes mellitus Sibling 1 Hypertension Sibling 1 CABG Sister Diabetes Sister Goiter Sister Relation Status Comments Brother Daughter 1 Daughter 2 Father Maternal Aunt 1 Maternal Aunt 2 Maternal Grandfather Maternal Uncle 1 Maternal Uncle 2 Mother Sibling 1 Sibling 2 Sibling 3 Sister Social History Tobacco Use Types Packs/Day Years Used Date Smoking Tobacco: Former Smokeless Tobacco: Never Tobacco Cessation:Counseling Given: No Comments:quit June 2007 Alcohol Use Standard Drinks/Week Comments Not Currently 0 (1 standard drink = 0.6 oz pur e alcohol) Education Answer Date Recorded Are you interested in more education? Not on zion e 06/27/2022 Are you concerned about learning? Not on file 06/27/2022 No 06/27/2022 No 06/27/2022 Digital Access Answer Date Recorded No 07/28/2022 No 07/28/2022 Reliable internet access at home? Not on file 07/28/2022 Device with a working camera? Not on file Comments Unknown Sex and Gender Information Value Date Recorded Sex Assigned at Not on file Legal Sex Female 9:40 PM EDT Gender Identity Not on file Sexual Orientation Not on file Last Filed Vital Signs Vital Sign Reading Time Taken Comments Blood Pressure 118/66 11/27/2020 7:38 AM EDT Pulse 77 11/27/2020 7:38 AM EDT Temperature 36 C (96.8 F) 05/09/2019 12:45 PM EDT Respiratory Rate 20 05/09/2019 12:54 PM EDT Oxygen Saturation 98% 11/27/2020 7:38 AM EDT Inhaled Oxygen Concentration - - Weight 72.6 kg (160 lb) 11/27/2020 7:38 AM EDT Height 167.6 cm (5' 6 ) 11/27/2020 7:38 AM EDT Body Mass Index 25.82 11/27/2020 7:38 AM EDT Plan of Treatment Health Maintenance Due Date Last Done Comments Adult Td,Tdap Booster 1965 SMOKING Hx and SMOKELESS TOBACCO SCREENING 1978 HEPATITIS C SCREENING 09/28/1983 HIV ONE-TIME SCREENING (18-65 YEARS) 09/28/1983 COLOGUARD 2010 FIT TEST 2010 FOBT 2010 SIGMOIDOSCOPY 2010 VIRTUAL COLONOSCOPY 2010 PNEUMOCOCCAL VACCINES (50+ years) (1 of 1 - PCV) 09/28/2015 ZOSTER VACCINES (1 of 2) 09/28/2015 MAMMOGRAM 12/17/2016 12/18/2015 DEPRESSION SCREENING 12/21/2018 12/21/2017 COLONOSCOPY 05/08/2022 05/09/2019, 0311/2019, 02/27/2016 COLORECTAL CANCER SCREENING 05/08/2022 INFLUENZA VACCINE (#1) 2024 COVID-19 VACCINE ( season) 2024 10/18/2020, 2020 LIPID PANEL 05/29/2025 05/29/2020, 01/30, 08/12/2018, Additional history exists PAP SMEAR 09/26/2025 09/26/2020, 08/31, 01/16/2016 RSV VACCINE (1 - 1-dose 75+ series) 2040 HEPATITIS A VACCINES Aged Out No long er eligible based on patient's age to complete this topic HIB VACCINES Aged Out No longer eligi ble based on patient's age to complete this topic MENINGOCOCCAL VACCINES (ACWY) Aged Out No longer eligible based on patient's age to complete this topic MENINGOCOCCAL VACCINES (B) Aged Out N o longer eligible based on patient's age to complete this topic Medical Devices Not on file Procedures Procedure Name Priority Date/Time Associated Diagnosis Comments HM PAP SMEAR FOR RESULT ENTRY ONLY Routine 09/26/2020 LIPID PANEL Routine 05/29/2020 8:42 AM EDT Dyslipidemia ENDOSCOPY, COLON 05/09/2019 12:0 9 PM EDT MAMMOGRAPHY Routine 12/18/2015 from Last 3 Months or Most Recently Relevant to Health Maintenance Results * PAP SMEAR FOR RESULT ENTRY ONLY (09/26/2020) us Historical Provider HEALTH MAINTENANCE Final Result * (ABNORMAL) Lipid panel (05/29/2020 8:42 AM EDT) HDL 44 mg/dL [facility] Comment: Interpretation <40 mg/dL: Low HDL cholesterol (major risk factor for CHD) Greater than or equal to 60 mg/dL: High HDL cholesterol ( negative risk factor for CHD) HDL - cholesterol is affected by a number of factors, e.g. smoking, excerise, hormones, sex and age. CHOLESTEROL 174 0 - 240 mg/dL [facility] TRIGLYCERIDES 166(H) 30 - 160 mg/dL [facility] LDL 97 50 - 129 mg/dL [facility] Comment: LDL levels in terms of risk for coronary heart disease: <100 mg/dL: Optimal 100-129 mg/dL: Near or above optimal 130-159 mg/dL: Borderline high 160-189 mg/dL: High >190 mg/dL: Very High CARDIAC RISK RATIO 4.0 3.3 - 4.4 C [facility] Blood 05/29/2020 8:42 AM EDT 05/29/2020 8:45 AM EDT Chencho Toro MD LAB BLOOD BKR ORDERABLES Rhonda l Result [address] [address] * ENDOSCOPY, COLON (05/09/2019 12:09 PM EDT) Narrative Transcriptions Blayne Salcedo MD - 05/09/2019 12:09 PM EDT Patient Name: Ailyn Ta Attending MD:: BLAYNE SALCEDO MD, Procedure Date: 05/09/2019 12:09 PM Date of : 1965 Age: 53 Admit Type: Outpatient Gender: Female Room: [place] [address] Referring MD: Sammie Lindsay Exam Type: Colonoscopy Indications: High risk colon cancer surveillance: Personalhistory of colonic polyps Medications: Monitored Anesthesia Care Procedure: Informed consent was obtained from the patient after discussion of the indications, limitations, alternatives, benefits, and risks of the procedure. Risks specifically discussed include but are not limited to medication reactions, missed lesions, bleeding, perforation, or the need for emergentsurgery. Throughout the procedure, the patient's bloodpressure, pulse, end-tidal CO2, and oxygen saturations were monitored continuously. The Olympus pediatric variable colonoscopePCF-[id number] #3 was introduced through the anus and advanced tothe cecum, identified by appendiceal orifice andileocecal valve. The colonoscopy was performed without difficulty. The patient tolerated the procedurewell. The quality of the bowel preparation was excellent.The quality of the bowel preparation was evaluated using the BBPS ([place] Bowel Preparation Scale) withscores of: Right Colon = 3, Transverse Colon = 3 and Left Colon = 3 (entire mucosa seen well with no residual staining, small fragments of stool or opaqueliquid). The total BBPS score equals 9. Complications: No immediate complications. Estimated blood loss: Minimal. Findings: The perianal and digital rectal examinations were normal. A diminutive polyp was found in the rectum. Thepolyp was sessile. The polyp was removed with a coldbiopsy forceps. Resection and retrieval were complete. Internal hemorrhoids were found during retroflexion. The hemorrhoids were moderate. The exam was otherwise normal throughout theexamined colon. Impression: - One diminutive polyp in the rectum, removed with a cold biopsy forceps. Resected and retrieved. - Internal hemorrhoids. Recommendation: - Discharge patient to home. - Await pathology results. - Repeat colonoscopy in 5 years for surveillance. BLAYNE SALCEDO MD, 05/09/2019 12:35:44 PM This report has been signed electronically. Number of Addenda: 0 Note Initiated On: 05/09/2019 12:09 PM Procedure Code(s): --- Professional --- 68583, Colonoscopy, flexible; with biopsy, single or multiple --- Technical --- 30809, Colonoscopy, flexible; with biopsy, single or multiple Diagnosis Code(s): --- Professional --- Z86.010, Personal history of colonic polyps K62.1, Rectal polyp K64.8, Other hemorrhoids --- Technical --- Z86.010, Personal history of colonic polyps K62.1, Rectal polyp K64.8, Other hemorrhoids CPT copyright 2018 [employer]. All rights reserved. The codes documented in this report are preliminary and upon numerologist reviewmay be revised to meet current compliance requirements. Procedure Date: 05/09/2019 12:09:[address] [place] [id number] Sammie Lindsay MD GI PROCEDURE ORDERABLES Allan sai Result - Final * MAMMOGRAPHY FOR RESULT ENTRY ONLY (12/18/2015) Mammogram annual Historical Provider HEALTH MAINTENANCE Final Result from Last 3 Months or Most Recently Relevant to Health Maintenance [facility] INDEMNITY [employer] TOTAL CHOICE INDEMNITY [employer] TOTAL CHOICE INDEMNITY [employer] [facility] TOTAL CHOICE INDEMNITY [employer] [facility] TOTAL CHOICE INDEMNITY [employer] [facility] TOTAL CHOICE INDEMNITY [employer] [facility] TOTAL CHOICE INDEMNITY [employer] [facility] TOTAL CHOICE INDEMNITY Jose [facility] [id number] [facility] TOTAL CHOICE INDEMNITY Care Teams Editor Continuity And Script Relationship Specialty Start Date End Date Unknown, Unknown, PCP - General 06/02/23 Additional Source Comments The information contained in this document represents components of the legal health record. It is not the complete legal health record.[facility]
== END 2025-01-19 09:07 | disposition home or self-care (01) ==
LOC: HO.HSMS 08:29
PROVIDERS: PCP Physician Assistant; Visit Provider Psychiatry & Neurology Neurology
DX: R29.898 Other symptoms and signs involving the musculoskeletal system (principal); M48.02 Spinal stenosis, cervical region; R20.2 Paresthesia of skin
CPT/HCPCS: 99204

== ENCOUNTER 2025-02-16 15:29 | Outpatient (REF) | payer OTHER, SELFPAY ==
--- NOTE | ~2025-02-16 | US_ITS ---
EXAMINATION: US PELVIS TRANSABDOMINAL AND TRANSVAGINAL HISTORY: Follow-up left ovary. COMPARISON: Ultrasound 10/05/2024 TECHNIQUE: Transabdominal and endovaginal real-time 2D saenz-scale ultrasound was performed. FINDINGS: LMP:Postmenopausal Uterus: Uterus is anteverted and retroflexed measuring 5.5 x 2.5 x 2.7 cm. Myometrium has a normal echotexture. No focal uterine lesions Endometrium: The endometrial stripe measures 3 mm in thickness. Right ovary: The right ovary measures 1.2 x 1.3 x 1.2 cm. Volume 1 mL. Right ovary appears unremarkable. Left ovary: The left ovary measures 1.5 x 1.2 x 1.4 cm.. Volume 1.3 mL. Redemonstrated is rounded focus, with peripheral echogenicity and central hypoechogenicity measuring 5 x 4 x 5 mm. No significant vascularity seen. This appears similar as compared to the prior study. Vascular flow is seen in left ovary and right adnexa. Pelvic fluid: none. US/US pelvic and transvaginal IMPRESSION: 1. No acute process. 2. Persistent 5 mm peripheral echogenic focus in the left ovary, no significant interval change as compared to the prior ultrasound of 10/05/2024. This is of indeterminate etiology. Consider further characterization with MRI without and with contrast, as clinically indicated. Electronically signed by: Ernesto Barnes MD 02/16/2025 04:10 PM [facility]
--- OUTSIDE RECORDS SUMMARY | 2025-02-16 19:25 | XMS_ITS | Clinical Summary ---
Author Organization [facility] [address] [facility] Address [address] [place] [address] Phone Care Team Providers Care Director Of Hospitality Name Role Phone Carole Wray MD Primary Care Provider [phone] Social History Tobacco Use Types Packs/Day Years Used Date Smoking Tobacco: Never Assessed Comments Unknown Sex and Gender Information Value Date Recorded Sex Assigned at Female 10/16/2024 9:32 PM EDT Legal Sex Female 5:50 PM EST Gender Identity Not on file Sexual Orientation Not on file Plan of Treatment Health Maintenance Due Date Last Done Comments Breast Cancer Screening 1965 Colorectal Cancer Screening: Colonoscopy 1965 DTaP,Tdap,and Td Vaccines (1 - Tdap) 1984 Hepatitis B Vaccines (1 of 3 - 19+ 3-dose series) 1984 Pneumococcal Vaccine: 50+ Years (1 of 2 - PCV) 1984 Cervical Cancer Screening: P ap Smear 1986 RSV Immunization Adult Patients (1 - Risk 50-74 years 1-dose series) 09/28/2015 Zoster Vaccines (1 of 2) 09/28/2015 HIV Screening 02/01/2022 Hepatitis C Screening 02/01/2022 Social Influencers of Health Screening 02/01/2022 Depression Screening 03/02/2024 COVID-19 Vaccine (3 - 2024-2 6 season) 2024 10/18/2020, 2020 Influenza Vaccine (#1) 2024 Cholesterol Screening (Lipid Panel) 05/29/2025 05/29/2020 HIB Vaccines Aged Out No longer eligi ble based on patient's age to complete this topic HPV Vaccines Aged Out No longer eligi ble based on patient's age to complete this topic Hepatitis A Vaccines Aged Out No long er eligible based on patient's age to complete this topic IPV Vaccines Aged Out No longer eligi ble based on patient's age to complete this topic MMR Vaccines Aged Out No longer eligi ble based on patient's age to complete this topic Meningococcal ACWY Vaccine Aged Out N o longer eligible based on patient's age to complete this topic Meningococcal B Vaccine Aged Out No l onger eligible based on patient's age to complete this topic RSV Immunization Patients Under 20 months Aged Out No longer eligible b ased on patient's age to complete this topic Varicella Vaccines Aged Out No longer eligible based on patient's age to complete this topic Insurance [facility] [place] [id number] Care Teams Director Of Hospitality Relationship Specialty Start Date End Date Carole Wray MD [address] [place] [address] PCP - General Internal Medicine 11/01/24
--- OUTSIDE RECORDS SUMMARY | 2025-02-16 19:25 | XMS_ITS | Encounter Summary ---
Author Organization [facility] Address [address] [place] [address] Phone Care Team Providers Care Night Guard Name Role Phone Ignacio Cloud MD Unavailable [phone] Unknown, Unknown Primary Care Provider Sammie Yuan MD Primary Care Provider [phone] Unknown, Unknown Primary Care Provider Annia vasquez Encounter Details Date Type Department Care Team (Late st Contact Info) Description 07/06/2017 Ancillary Orders Virtual Department [address] [place] [address] Thom Sanches MD [address] [place] [phone] [email or web address] Fatty liver; Elevated LFTs Social History Tobacco [...] demonstrated. No other significant changes. POS - [id number] Narrative 07/06/2017 8:16 AM EDT HISTORY: Elevated [...] are demonstrated. No other significantchanges. POS - [id number] Thom Sanches MD IM US ABDOMEN Final Result documented in this encounter Visit Diagnoses Diagnosis Fatty liver Other chronic nonalcoholic liver disease Elevated LFTs Other abnormal blood chemistry Fatty liver Other chronic nonalcoholic liver disease Elevated LFTs Other abnormal blood chemistry documented in this encounter Care Teams Night Guard Relationship Specialty Start Date End Date Unknown, Unknown, [address] [place] [address] PCP - General 06/22/17 12/20/17 Sammie Lindsay MD [address] [place] [address] [email or web address] PCP - General Family Medicine 12/21/17 06/01/23 Unknown, Unknown, MD PCP - General 06/02/23 Ignacio Cloud MD [address] [place] [address] Historical LMR Provider 12/18/16 2 documented as of this encounter Additional Source Comments The information contained in this document represents components of the legal health record. It is not the complete legal health record.[facility]
--- OUTSIDE RECORDS SUMMARY | 2025-02-16 19:25 | XMS_ITS | Clinical Summary ---
Author Organization [facility] Address [address] [place] [address] Phone Care Team Providers Care Protein Purification Scientist Name Role Phone Unknown, Unknown Primary Care Provider Sofiavai lable Allergies No known active allergies Medications therapeutic multivitamin tablet Take 1 tablet by mouth daily. Active hydrocortisone 2.5 % cream Apply topically as needed. Active cholecalciferol (VITAMIN D3) 2,000 unit tablet Vitamin D TABS [id number] a week Refills: 0 Active Active clobetasol [...] MAMMOGRAM 12/17/2016 12/18/2015 DEPRESSION SCREENING 12/21/2018 12/21/2017 INFLUENZA VACCINE (#1) 2024 COVID-19 VACCINE ( season) 2024 10/18/2020, 2020 LIPID PANEL 05/29/2025 05/29/2020, 01/30, 08/12/2018, Additional history exists PAP SMEAR 09/26/2025 09/26/2020, 08/31, 01/16/2016 COLONOSCOPY 05/31/2034 05/30/2024, 11/2019, 05/09/2019, Additional history exists COLORECTAL CANCER SCREENING 05/31/2034 RSV VACCINE (1 - 1-dose 75+ series) [...] Name Priority Date/Time Associated Diagnosis Comments HM COLONOSCOPY FOR RESULT ENTRY ONLY Routine 05/30/2024 PAP SMEAR FOR RESULT ENTRY ONLY Routine 09/26/2020 LIPID PANEL Routine 05/29/2020 8:42 AM EDT Dyslipidemia MAMMOGRAPHY Routine 12/18/2015 from Last 3 Months or Most Recently Relevant to Health Maintenance Results * COLONOSCOPY FOR RESULT ENTRY ONLY (05/30/2024) Colonoscopy External Historical Provider HEALTH MAINTENANCE Final Result * PAP SMEAR FOR RESULT ENTRY ONLY (09/26/2020) Historical Provider HEALTH MAINTENANCE Final Result * (ABNORMAL) Lipid panel (05/29/2020 8:42 AM EDT) Pathologist [facility] HDL 44 mg/dL [facility] Comment: Interpretation <40 mg/dL: Low HDL cholesterol (major risk factor for CHD) Greater than or equal to 60 mg/dL: High HDL cholesterol ( negative risk factor for CHD) HDL - cholesterol is affected by a number of factors, e.g. smoking, excerise, hormones, sex and age. CHOLESTEROL 174 0 - 240 mg/dL [facility] TRIGLYCERIDES 166(H) 30 - 160 mg/dL [facility] LDL 97 50 - 129 mg/dL [facility] Comment: LDL levels in terms of risk for coronary heart disease: <100 mg/dL: Optimal 100-129 mg/dL: Near or above optimal 130-159 mg/dL: Borderline high 160-189 mg/dL: High >190 mg/dL: Very High CARDIAC RISK RATIO 4.0 3.3 - 4.4 C [facility] Blood 05/29/2020 8:42 AM EDT 05/29/2020 8:45 AM EDT Chencho Toro MD LAB BLOOD BKR ORDERABLES Rhonda mendoza Result [address] [address] * MAMMOGRAPHY FOR RESULT ENTRY ONLY (12/18/2015) Mammogram annual Historical Provider HEALTH MAINTENANCE Final Result from Last 3 Months or Most Recently Relevant to Health Maintenance Insurance Jose [place] [id number] [employer] [facility] TOTAL CHOICE INDEMNITY [employer] TOTAL CHOICE INDEMNITY [employer] [facility] TOTAL CHOICE INDEMNITY [employer] TOTAL CHOICE INDEMNITY [employer] TOTAL CHOICE INDEMNITY [employer] [facility] TOTAL CHOICE INDEMNITY [employer] [facility] [place] [id number] [employer] [facility] TOTAL CHOICE INDEMNITY [employer] [facility] TOTAL CHOICE INDEMNITY Care Teams Protein Purification Scientist Relationship Specialty Start Date End Date Unknown, Unknown, PCP - General 06/02/23 Additional Source Comments The information contained in this document represents components of the legal health record. It is not the complete legal health record.[facility]
--- OUTSIDE RECORDS SUMMARY | 2025-02-16 19:25 | XMS_ITS | Encounter Summary ---
Author Organization [facility] Address [address] [place] [address] Phone Care Team Providers Care Director Adult Name Role Phone Ignacio Cloud MD Unavailable [phone] Pcp, Unknown Primary Care Provider Unavailabl e Unknown, Unknown Primary Care Provider Sammie Yuan MD Primary Care Provider [phone] Unknown, Unknown Primary Care Provider Annia vasquez Encounter Details Date Type Department Care Team (Latest Contact Info) Description 06/09/2017 Ancillary Orders Virtual Department [address] [place] [address] Thom Sanches MD [address] [place] [address] [phone] [email or web address] Gastroesophageal reflux disease, esophagitis presence not specified; [...] IMAGES/FRAMES POS - [id number] Thom Sanches MD [facility] Final Result documented in this encounter Visit Diagnoses Diagnosis Gastroesophageal reflux disease, esophagitis presence not specified NAFLD (nonalcoholic fatty liver disease) Other dysphagia Gastroesophageal reflux disease, esophagitis presence not specified NAFLD (nonalcoholic fatty liver disease) Other dysphagia documented in this encounter Care Teams Director Adult Relationship Specialty Start Date End Date Pcp, Unknown PCP - General 06/09/17 06/21/17 Unknown, Unknown, PCP - General 06/22/17 12/20/17 Sammie Lindsay MD [email or web address] PCP - General Family Medicine 12/21/17 06/01/23 Unknown, Unknown, PCP - General 06/02/23 Ignacio Cloud MD [address] [place] [address] Historical LMR Provider 12/18/16 2 documented as of this encounter Additional Source Comments The information contained in this document represents components of the legal health record. It is not the complete legal health record.[facility]
--- OUTSIDE RECORDS SUMMARY | 2025-02-16 19:25 | XMS_ITS | Clinical Summary ---
Author Organization [facility] Address [address] [place] [address] Care Team Providers Care Public Speaking Instructor Name Role Phone Pcp, No Primary Care [...] Influenza Vaccine 09/30/2024 COVID-19 Vaccine ( - 2024- season) 2024 RSV Vaccine 50 years and old er and Patients (1 - 1-dose 75+ series) 2040 Insurance [facility] Care Teams Public Speaking Instructor Relationship Specialty Start Date End Date Pcp, No PCP - General General Medicine 11/21/19
--- OUTSIDE RECORDS SUMMARY | 2025-02-16 19:25 | XMS_ITS | Encounter Summary ---
Author Organization [facility] Address [address] [place] [address] Phone Care Team Providers Care Group Therapist Name Role Phone Ignacio Cloud MD Primary Care Provider Ignacio Cloud MD Unavailable [phone] Pcp, Unknown Primary Care Provider Unavailabl e Unknown, Unknown Primary Care Provider Sammie Yuan MD Primary Care Provider Unknown, Unknown Primary Care Provider Annia vasquez Encounter Details Date Type Department Care Team (Late st Contact Info) Description 05/15/2017 Ancillary Orders Virtual Department [address] [place] [address] Thom Sanches MD [address] [place] [address] [phone] [email or web address] Fatty liver; Elevated LFTs Social History Tobacco [...] chemistry documented in this encounter Care Teams Group Therapist Relationship Specialty Start Date End Date Ignacio Cloud MD PCP - General 12/18/16 06/08/17 Pcp, Unknown PCP - General 06/09/17 06/21/17 Unknown, Unknown, PCP - General 06/22/17 12/20/17 Sammie Lindsay MD [email or web address] PCP - General Family Medicine 12/21/17 06/01/23 Unknown, Unknown, PCP - General 06/02/23 Ignacio Cloud MD [address] [place] [address] Historical LMR Provider 12/18/16 1/ 2 documented as of this encounter Additional Source Comments The information contained in this document represents components of the legal health record. It is not the complete legal health record.[facility]
--- OUTSIDE RECORDS SUMMARY | 2025-02-16 19:25 | XMS_ITS | Encounter Summary ---
Author Organization [facility] Address [address] [place] [address] Phone Care Team Providers Care Backhoe Operator Name Role Phone Ignacio Cloud MD Unavailable Sammie Lindsay MD Primary Care Provider [phone] Unknown, Unknown Primary Care Provider Annia vasquez Encounter Details Date Type Department Care Team (Late st Contact Info) Description 05/09/2019 Procedure Pass [facility] Endoscopy Admitting Dept Virtual Department [address] [place] [address] Social History Tobacco Use Types Packs/Day Years [...] documented as of this encounter Care Teams Backhoe Operator Relationship Specialty Start Date End Date Sammie Lindsay MD [address] [place] [phone] [email or web address] PCP - General Family Medicine 12/21/17 06/01/23 Unknown, Unknown, MD PCP - General 06/02/23 Ignacio Cloud MD [address] [place] [address] Historical LMR Provider 12/18/16 2 documented as of this encounter Additional Source Comments The information contained in this document represents components of the legal health record. It is not the complete legal health record.[facility]
--- OUTSIDE RECORDS SUMMARY | 2025-02-16 19:25 | XMS_ITS | Encounter Summary ---
Author Organization [facility] Address [address] [place] [address] Phone Care Team Providers Care [employer] Name Role Phone Ignacio Cloud MD Unavailable [phone] Unknown, Unknown Primary Care Provider Sammie Yuan MD Primary Care Provider Unknown, Unknown Primary Care Provider Annia vasquez Encounter Details Date Type Department Care Team (Latest Contact Info) Description 06/22/2017 Transcribe Orders [facility] Phleb Main [address] [place] [id number] Thom Sanches MD [address] [place] [phone] [email or web address] Pharyngoesophageal dysphagia (Primary Dx) Social History Tobacco [...] ALKALINE PHOSPHATASE 105 39 - 117 U/L [facility] TOTAL BILIRUBIN 0.5 0.0 - 1.2 mg/dL [facility] DIRECT BILIRUBIN <0.2 0 - 0.3 mg/dL [facility] Bilirubin (Indirect) NOT CALCULATED 0 - 1.5 mg/dL [facility] AST 29 0 - 37 U/L [facility] ALT 44(H) 0 - 40 U/L [facility] TOTAL PROTEIN 6.9 6.5 - 8.0 g/dL [facility] ALBUMIN 4.1 3.9 - 4.8 g/dL [facility] GLOBULIN 2.8 1 - 4.8 g/dL [facility] A/G Ratio 1.46 1.00 - 4.80 RATIO [facility] Blood 06/22/2017 9:40 AM EDT 06/22/2017 9:41 AM EDT us Thom Sanches MD LAB BLOOD BKR ORDERABLES Rhonda l Result Performing Organization Address City/State/[facility] Co de Phone Number [address] [address] documented in this encounter Visit Diagnoses Diagnosis Pharyngoesophageal dysphagia- Primary Dysphagia, pharyngoesophageal phase documented in this encounter 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 It is not the complete legal health record.[facility]
== END 2025-02-16 15:30 | disposition home or self-care (01) ==
LOC: HO.US 15:29
PROVIDERS: PCP Physician Assistant; Visit Provider Physician Assistant
DX: R14.0 Abdominal distension (gaseous) (principal); R93.5 Abnormal findings on diagnostic imaging of other abdominal regions, including retroperitoneum
CPT/HCPCS: 76830; 76856

== ENCOUNTER → 2025-02-16 15:31 | Outpatient (BNV) | payer OTHER, SELFPAY | PROVIDERS: PCP Physician Assistant; Visit Provider Radiology Diagnostic Ultrasound | DX: N83.292 Other ovarian cyst, left side (principal) | CPT/HCPCS: 76830; 76856 ==